=== PATIENT | male | born 1985 | race Caucasian/White ===

== ENCOUNTER → 2018-12-22 08:31 | Outpatient (CLI) | payer OTHER, SELFPAY ==
--- NOTE | 2018-12-22 | DI.MRI.S_ITS ---
PROCEDURE: MR LUMBAR SPINE WO CON INDICATIONS: PARESTHESIA OF SKIN TECHNIQUE: Noncontrast sagittal T1 spin echo and T2 fast echo, sagittal STIR, axial T1 and T2 fast spin echo through the lumbar spine. In cases with scoliosis, additional coronal T2 fast spin echo may be performed. COMPARISON: None. FINDINGS: Image quality: Good. Diagnostic. Some patient motion on 2 sequences.. Alignment and Curvature: There is normal bony alignment. Bone Marrow: Marrow is of normal overall signal. No acute vertebral body compression fractures. Mild anterior vertebral body height loss involving L1. Spinal Cord: Conus medullaris terminates at the L1 level. Visualized cord demonstrates normal signal and size. Paraspinous Soft Tissues: No paravertebral masses. T12-L1: Chronic disc height loss. Mild disc bulge. No canal stenosis or foraminal stenosis. L1-L2: Chronic disc height loss. Mild disc bulge. No canal stenosis or foraminal stenosis. L2-L3: No canal stenosis or foraminal stenosis. Mild facet joint fluid. L3-L4: No canal stenosis or foraminal stenosis. Mild facet joint hypertrophy. L4-L5: Posterior annulus tear plus disc bulge. No canal stenosis or foraminal stenosis. Facet joint hypertrophy. L5-S1: No canal stenosis or foraminal stenosis. Facet joint hypertrophy. IMPRESSION: 1. No canal stenosis or foraminal stenosis. 2. L4-L5, there is posterior annulus tear plus disc bulge. 3. Multilevel facet hypertrophy. Dictated by: Marco Antonio Palafox M.D. on 12/22/2018 at 11:51 Approved by: Marco Antonio Palafox M.D. on 12/22/2018 at 12:13
--- NOTE | 2018-12-22 | DI.MRI.S_ITS ---
PROCEDURE: MR THORACIC SPINE WO CON INDICATIONS: PARESTHESIA OF SKIN TECHNIQUE: Noncontrast sagittal T1 spine echo and T2 fast spin echo, sagittal STIR, axial T1 and T2 fast spin echo through the thoracic spine. COMPARISON: None. FINDINGS: Image quality: Excellent. Alignment and Curvature: There is normal bony alignment. Bone Marrow: Marrow is of normal overall signal. No acute vertebral body compression fractures. Mild chronic wedging of T12 and L1. Spinal Cord: Visualized spinal cord is normal in size and signal. Paraspinous Soft Tissues: No paravertebral masses. Miscellaneous: Mild concentric disc bulge to the left at T3-T4. Mild disc bulges at T11-T12 and T12-L1. On axial images, central canal and foramina appear widely patent at all scanned levels. IMPRESSION: 1. Mild disc bulges at T3-T4, T11-T12, and T12-L1. 2. No canal stenosis or foraminal stenosis. 3. Normal appearance of thoracic cord. 4. Mild chronic anterior vertebral body height loss of T12 and L1. Dictated by: Marco Antonio Palafox M.D. on 12/22/2018 at 11:43 Approved by: Marco Antonio Palafox M.D. on 12/22/2018 at 11:49
--- NOTE | 2018-12-22 | DI.MRI.S_ITS ---
PROCEDURE: MR CERVICAL SPINE WO CON INDICATIONS: paresthesia of skin, carpal tunnel syndrome TECHNIQUE: Noncontrast sagittal T1 spin echo and T2 fast spin echo, sagittal STIR, foraminal oblique sagittal T2 fast spin echo, and axial gradient echo or T2 fast spin echo through the cervical spine. COMPARISON: None. FINDINGS: Image quality: Excellent. Alignment and Curvature: There is normal bony alignment. Bone Marrow: Marrow demonstrates normal overall signal. Spinal Cord: Visualized spinal cord has normal size and signal. No cerebellar tonsillar herniation. Paraspinous Soft Tissues: No paravertebral masses. Prevertebral soft tissues are normal in thickness. C2-C3: No canal stenosis or foraminal stenosis. Mild right facet hypertrophy. C3-C4: No canal stenosis or foraminal stenosis. Mild right uncovertebral joint hypertrophy with mild right foraminal narrowing. C4-C5: No canal stenosis or foraminal stenosis. Mild bilateral facet hypertrophy. C5-C6: Minimal disc bulge. No canal stenosis or foraminal stenosis. Bilateral facet hypertrophy. C6-C7: No canal stenosis. Probable right foraminal annulus tear. No significant foraminal stenosis. Bilateral facet hypertrophy. C7-T1: Normal appearance. IMPRESSION: 1. Mild cervical spondylitic change with multilevel facet hypertrophy. 2. Probable right foraminal annulus tear at C6-C7. Does this patient have a right C7 radiculopathy? 3. No canal stenosis or significant foraminal stenosis. Dictated by: Marco Antonio Palafox M.D. on 12/22/2018 at 9:46 Approved by: Marco Antonio Palafox M.D. on 12/22/2018 at 9:55
== END ==
PROVIDERS: PCP General Practice; Visit Provider General Practice
DX: R20.2 Paresthesia of skin (principal); G56.00 Carpal tunnel syndrome, unspecified upper limb; M47.812 Spondylosis without myelopathy or radiculopathy, cervical region; M51.24 Other intervertebral disc displacement, thoracic region; M51.26 Other intervertebral disc displacement, lumbar region
CPT/HCPCS: 72141; 72146; 72148

== ENCOUNTER 2020-03-14 09:22 | Emergency (ER) | payer OTHER, SELFPAY ==
[2020-03-14] VITALS (13 sets, daily range): BP systolic 124–138; BP diastolic 61–94; PULSE 47–83; RESP 16–18; TEMP 36.6; O2SAT 97–100; BMI 33.5
--- NOTE | 2020-03-14 09:49 | ED.ABDPAIN ---
HPI - Abdominal Pain General Chief Complaint: Abdominal Pain Stated Complaint: flare up of diverticulitis Time Seen by Provider: 03/14/20 09:41 Source: patient Mode of arrival: Ambulatory Limitations: no limitations History of Present Illness HPI narrative: The patient presents with left-sided abdominal pains, started about 5 days ago. Pain is intensified over the last 3 days. He has nausea, no emesis. He is not having diarrhea, he notes stool changes. His stool has been dark and the consistency of toothpaste. He has decreased appetite, eating only brought the last couple days. He has had nothing to eat this morning. He has no associated back pain. He denies dysuria, the feels like there is pressure on his bladder. He has no prior history of urinary problems. He has a prior history of diverticulitis. He denies fever, he has experienced chills. Related Data Previous Rx's Medication Instructions Recorded ondansetron 4 mg PO Q4-6H PRN #20 tab 03/14/20 Allergies Allergy/AdvReac Type Severity Reaction Status Date / Time escitalopram [From Lexapro] Allergy Verified 03/14/20 09:31 sertraline [From Zoloft] Allergy Verified 03/14/20 09:31 Review of Systems Constitutional Constitutional: Reports anorexia, Reports chills, Denies fever(s), Denies headache(s) and Reports lethargy Eyes Eyes: Denies change in vision ENT Ears, Nose, Mouth, and Throat: Denies headache(s) Comments: No ENT complaints Cardiovascular Cardiovascular: Denies chest pain, Denies irregular heart rhythm and Denies lightheadedness Respiratory Respiratory: Denies chest congestion and Denies cough Gastrointestinal Comments: See HPI Genitourinary Genitourinary: Reports as per HPI Genitourinary: Reports as per HPI Musculoskeletal Musculoskeletal: Denies back pain and Denies arthralgias Integumentary/Breasts Skin/Breast: Denies pruritus, Denies erythema and Denies rash Neurologic Neurologic: Denies confusion and Denies headache(s) Psychiatric Psychiatric: Denies anxiety and Denies confusion Patient History Medical History (Updated 03/14/20 @ 12:33 by Justin Thomas MD) Depression Diverticulitis Peripheral neuropathy Surgical History (Updated 03/14/20 @ 17:06 by Justin Thomas MD) No significant past surgical history Social History Smoking Status: Never smoker Smoking Status: Never smoker alcohol intake frequency: 0-2 drinks per day Substance Use Type: does not use Exam Initial Vital Signs Initial Vital Signs: Vital Signs Pulse Rate 83 03/14/20 09:28 Pulse Oximetry 98 03/14/20 09:28 Const General: cooperative and well developed Nutritional Appearance: well nourished [facility] Head: normocephalic and atraumatic Mouth: oral mucosae normal Eyes Conjunctivae: conjunctivae normal Sclera: sclerae normal Resp Effort & Inspection: normal respiratory effort and able to speak in complete sentences Auscultation: clear to auscultation bilaterally, no rales, no rhonchi and no wheezes Cardio Rate: regular rate Rhythm: regular rhythm Heart Sounds: S1 normal, S2 normal, no click, no gallops, no murmurs and no rubs Pulses: normal peripheral pulses GI Inspection: non-distended Palpation: soft, no hepatosplenomegaly, guarding (No rebound) and No pulsatile mass Auscultation: normal bowel sounds Back/Spine/Pelvis Back: No CVA tenderness Skin General: no rashes or lesions noted, No jaundice and No petechiae Neuro General: patient alert, patient oriented x3, gait normal and no focal motor deficits Speech: speech normal Extrem General: no pedal edema and no calf tenderness Psych Mental Status: mental status grossly normal Course Orders Ordered: ED Orders 03/14/20 10:34 CT abdomen pelvis w con Stat Discontinued Medications Sodium Chloride (Normal Saline 0.9%) 1,000 mls @ 150 mls/hr IV CONT SERA Last Admin: 03/14/20 10:13 Dose: Not Given Documented by: STEFANI Sodium Chloride (Normal Saline 0.9%) 1,000 mls @ 200 mls/hr IV CONT SERA Last Infusion: 03/14/20 12:30 Dose: 0 mls/hr Documented by: Admin: 03/14/20 10:08 Dose: 200 mls/hr Documented by: STEFANI Ketorolac Tromethamine (Ketorolac 60 Mg/2 Ml Vial) 30 mg IV NOW ONE Stop: 03/14/20 09:48 Last Admin: 03/14/20 10:09 Dose: 30 mg Documented by: MMINOR Ondansetron HCl (Ondansetron 4 Mg/2 Ml Inj) 4 mg IV NOW ONE Stop: 03/14/20 09:48 Last Admin: 03/14/20 10:09 Dose: 4 mg Documented by: MMINOR Vital Signs Vital signs: Vital Signs - 8 hr 03/14/20 11:00 03/14/20 11:19 03/14/20 11:30 Pulse Rate 54 L 63 47 L Respiratory Rate Blood Pressure 133/63 132/67 Pulse Oximetry 97 99 99 03/14/20 12:00 03/14/20 12:30 03/14/20 12:31 Pulse Rate 61 59 L 59 L Respiratory Rate Blood Pressure 129/63 134/61 Pulse Oximetry 100 99 03/14/20 12:44 Pulse Rate 58 L Respiratory Rate 16 Blood Pressure 124/89 Pulse Oximetry 99 MDM - Abdominal Pain Lab Data Result diagrams: 03/14/20 09:40 03/14/20 09:40 Labs: Lab Results 03/14/20 03/14/20 Range/Units 09:40 09:40 WBC 5.5 (4.5-11.0) X10^3/uL RBC 5.23 (4.5-5.9) X10^6/uL Hgb 15.2 (13.5-17.5) g/dL Hct 45.5 (41-53) % MCV 87.0 (80-100) fL MCH 29.1 (26-34) PG MCHC 33.5 (30-36) % RDW 13.5 (11.6-14.8) % Plt Count 239 (150-400) X10^3/uL Neut % (Auto) 48.7 L (50-75) % Lymph % (Auto) 36.8 (25-40) % [place] % (Auto) 11.2 (3-14) % Eos % (Auto) 2.6 (2-4) % Baso % (Auto) 0.7 (0-2) % Neut # (Auto) 2700 (3151-2794) /uL Lymph # (Auto) 2000 (0950-3720) /uL [place] # (Auto) 600 (0-900) /uL Eos # (Auto) 100 (0-450) /uL Baso # (Auto) 0 (0-100) /uL Sodium 138 (137-145) mmol/L Potassium 4.8 (3.4-5.1) mmol/L Chloride 106 (98-107) mmol/L Carbon Dioxide 28 (22-32) mmol/L BUN 18 (9-20) mg/dL Creatinine 1.12 (0.66-1.25) mg/dL Estimated GFR > 60.0 (>60) mL/min BUN/Creatinine Ratio 16.1 (6-22) Glucose 113 H (70-100) mg/dL Calcium 9.4 (8.4-10.2) mg/dL Total Bilirubin 0.6 (0.2-1.3) mg/dL AST 31 (17-59) IU/L ALT 39 (<50) IU/L Alkaline Phosphatase 71 (38-126) U/L Total Protein 7.7 (6.3-8.2) g/dL Albumin 4.4 (3.5-5.0) g/dL Globulin 3.3 (1.7-4.1) g/dL Albumin/Globulin Ratio 1.3 (1.0-2.8) Lipase 58 (23-300) U/L Point of care testing: Urine Dip Bedside Urine Glucose Negative Bedside Urine Bilirubin - Negative Bedside Urine Ketone - Negative Urine Specific [place] 1.010 Bedside Urine Occult Blood - Negative Bedside Urine pH 6 Bedside Urine Protein - Negative Bedside Urine Urobilinogen - Negative Bedside Urine Nitrite - Negative Bedside Urine Leukocytes - Negative Esterase Imaging Data CT scan - abdomen/pelvis: Radiologist's Impression: 32 Justin Thomas MD Find Patient Imaging - Nasir Roth 34 M 1985 ACTIVITY DATE EXAM STATUS AUTHOR 03/14/20 10:[address] [id number] Scan ReportSigned Patient: Nasir Roth MMR#: [id number]: 1985Acct:[id number]/Sex: 34 / MDate of Service: 03/14/20Loc: EDAccession Number: [id number] Procedure: CT abdomen pelvis w con Ordering Provider: Justin Thomas MD PROCEDURE: CT ABDOMEN PELVIS W CON INDICATIONS: LLQ abdominal pain. History of diverticulitis. TECHNIQUE: After the administration of intravenous contrast, 5 mm thick sections acquired from the diaphragm to the symphysis. 5 mm coronal and sagittal reformats were acquired. For radiation dose reduction, the following was used: automated exposure control, adjustment of mA and/or kV according to patient size. COMPARISON: None. FINDINGS: Image quality: Excellent. ABDOMEN: Lung bases: Lung bases are clear. Heart size is normal. Solid organs: Diffuse moderate hepatic steatosis. Otherwise normal appearance of the liver. Gallbladder is normal. Biliary system is non dilated. Pancreas enhances normally. Spleen is normal in size and enhancement. No adrenal nodules. Kidneys demonstrate normal size and enhancement, without hydronephrosis. Peritoneum and bowel: Bowel loops demonstrate normal wall thickness and caliber. No free fluid or air. Nodes and vessels: No retroperitoneal or mesenteric adenopathy by size criteria. Aorta and inferior vena cava are normal in size. Miscellaneous: No ventral hernias. PELVIS: Genitourinary: Bladder wall thickness is normal. Miscellaneous: No inguinal hernias or adenopathy. Bones: No suspicious bony lesions. No vertebral body compression fractures. IMPRESSION: No acute finding. Dictated by: Wilmar Wong M.D. on 03/14/2020 at 11:00 Approved by: Wilmar Wong M.D. on 03/14/2020 at 11:02 [facility] Narrative Medical decision making narrative: The patient's abdominal pain has improved significantly with Toradol. The source of the pain is unclear. There is no evidence of significant infection, urinary issues, or acute intra-abdominal process. He will be discharged home on a bland diet. He is advised to use Tylenol and Zofran as needed. He is advised to return here if symptoms escalate. Discharge Plan Departure Patient Disposition: Home Clinical Impression: Abdominal wall pain in left flank Instructions: DI for Abdominal Pain-Adult Activity Restrictions/Additional Instructions: You should be on a bland diet, drink plenty of water. Advance her diet slowly as tolerated. Tylenol 2 tablets every 4 hours as needed for pain. Zofran every 4 hours as needed for nausea. The prescription has been electronically forwarded to [place]. Return to the ER for increasing pain, fever or vomiting. Prescriptions: New ondansetron 4 mg tablet,disintegrating 4 mg PO Q4-6H PRN (Reason: nausea and vomiting) Qty: 20 RF: 0 Stand Alone Forms: Work Release Note
[2020-03-14 09:50] LABS: Add Manual Diff / Slide Review NO; Basophils Absolute Auto 0 /uL (0-100); Basophils Percent Auto 0.7 % (0-2); Eosinophils Absolute Auto 100 /uL (0-450); Eosinophils Percent Auto 2.6 % (2-4); Hematocrit 45.5 % (41-53); Hemoglobin 15.2 g/dL (13.5-17.5); Lymphocytes Absolute Auto 2000 /uL (1100-4500); Lymphocytes Percent Auto 36.8 % (25-40); Mean Corpuscular HGB Conc 33.5 % (30-36); Mean Corpuscular Hemoglobin 29.1 PG (26-34); Monocytes Absolute Auto 600 /uL (0-900); Monocytes Percent Auto 11.2 % (3-14); Neutrophils Absolute Auto 2700 /uL (1500-7000); Neutrophils Percent Auto 48.7 % (50-75); Platelet Count 239 X10^3/uL (150-400); Red Blood Cell Count 5.23 X10^6/uL (4.5-5.9); Red Cell Distribution Width 13.5 % (11.6-14.8); White Blood Cell Count 5.5 X10^3/uL (4.5-11.0)
[2020-03-14 10:03] LABS: Alanine Aminotransferase 39 IU/L (<50); Albumin 4.4 g/dL (3.5-5.0); Albumin Globulin Ratio 1.3 (1.0-2.8); Alkaline Phosphatase 71 U/L (38-126); Aspartate Aminotransferase 31 IU/L (17-59); BUN Creatinine Ratio 16.1 (6-22); Bilirubin Total 0.6 mg/dL (0.2-1.3); Blood Urea Nitrogen 18 mg/dL (9-20); Calcium 9.4 mg/dL (8.4-10.2); Carbon Dioxide 28 mmol/L (22-32); Chloride 106 mmol/L (98-107); Estimated Glomerular Filt Rate > 60.0 mL/min (>60); Globulin 3.3 g/dL (1.7-4.1); Glucose 113 mg/dL (70-100); HEMOLYSIS < 15 (0-50); Lipase 58 U/L (23-300); Potassium 4.8 mmol/L (3.4-5.1); Sodium 138 mmol/L (137-145); Total Protein 7.7 g/dL (6.3-8.2)
[2020-03-14] MEDS: SODIUM CHLORIDE 0.9% 1,000 ML 200 ML IV (10:08)
[2020-03-14] MEDS: ONDANSETRON 4 MG/2 ML INJ IV (10:09)
[2020-03-14] MEDS: KETOROLAC 60 MG/2 ML VIAL 30 MG IV (10:09)
--- NOTE | 2020-03-14 10:34 | DI.CT.S_ITS ---
PROCEDURE: CT ABDOMEN PELVIS W CON INDICATIONS: LLQ abdominal pain. History of diverticulitis. TECHNIQUE: After the administration of intravenous contrast, 5 mm thick sections acquired from the diaphragm to the symphysis. 5 mm coronal and sagittal reformats were acquired. For radiation dose reduction, the following was used: automated exposure control, adjustment of mA and/or kV according to patient size. COMPARISON: None. FINDINGS: Image quality: Excellent. ABDOMEN: Lung bases: Lung bases are clear. Heart size is normal. Solid organs: Diffuse moderate hepatic steatosis. Otherwise normal appearance of the liver. Gallbladder is normal. Biliary system is non dilated. Pancreas enhances normally. Spleen is normal in size and enhancement. No adrenal nodules. Kidneys demonstrate normal size and enhancement, without hydronephrosis. Peritoneum and bowel: Bowel loops demonstrate normal wall thickness and caliber. No free fluid or air. Nodes and vessels: No retroperitoneal or mesenteric adenopathy by size criteria. Aorta and inferior vena cava are normal in size. Miscellaneous: No ventral hernias. PELVIS: Genitourinary: Bladder wall thickness is normal. Miscellaneous: No inguinal hernias or adenopathy. Bones: No suspicious bony lesions. No vertebral body compression fractures. IMPRESSION: No acute finding. Dictated by: Wilmar Wong M.D. on 03/14/2020 at 11:00 Approved by: Wilmar Wong M.D. on 03/14/2020 at 11:02
== END 2020-03-14 12:45 | disposition home or self-care (01) ==
PROVIDERS: Emergency Provider Emergency Medicine
DX: R10.9 Unspecified abdominal pain (principal); R63.0 Anorexia; R11.0 Nausea; K57.92 Diverticulitis of intestine, part unspecified, without perforation or abscess without bleeding
CPT/HCPCS: 36415; 74177; 80053; 81003; 83690; 85025; 96361; 96374; 96375; 99283; 99284; J1885; J2405; Q9967

== ENCOUNTER → 2021-06-19 09:38 | Outpatient (CLI) | payer OTHER, SELFPAY ==
[2021-06-19 13:13] LABS: Testosterone 212 ng/dL (132-813)
== END ==
PROVIDERS: PCP Nurse Practitioner Family; Referring Provider Nurse Practitioner Family; Visit Provider Nurse Practitioner Family
DX: R68.82 Decreased libido (principal)
CPT/HCPCS: 36415; 84403

== ENCOUNTER → 2021-06-24 10:12 | Outpatient (CLI) | payer OTHER, SELFPAY ==
[2021-06-24 10:44] LABS: Hematocrit 44.3 % (41-53); Hemoglobin 15.2 g/dL (13.5-17.5); Mean Corpuscular HGB Conc 34.4 % (30-36); Mean Corpuscular Hemoglobin 29.7 PG (26-34); Mean Corpuscular Volume 86.5 fL (80-100); Platelet Count 239 X10^3/uL (150-400); Red Blood Cell Count 5.12 X10^6/uL (4.5-5.9); Red Cell Distribution Width 13.9 % (11.6-14.8); White Blood Cell Count 6.4 X10^3/uL (4.5-11.0)
[2021-06-24 10:56] LABS: Alanine Aminotransferase 51 IU/L (<50); Albumin 4.5 g/dL (3.5-5.0); Albumin Globulin Ratio 1.3 (1.0-2.8); Alkaline Phosphatase 65 U/L (38-126); Aspartate Aminotransferase 37 IU/L (17-59); BUN Creatinine Ratio 14.8 (6-22); Bilirubin Total 0.6 mg/dL (0.2-1.3); Blood Urea Nitrogen 18 mg/dL (9-20); Calcium 9.4 mg/dL (8.4-10.2); Carbon Dioxide 27 mmol/L (22-32); Chloride 104 mmol/L (98-107); Cholesterol 225 mg/dL (140-199); Estimated Glomerular Filt Rate > 60.0 mL/min (>60); Globulin 3.4 g/dL (1.7-4.1); Glucose 107 mg/dL (70-100); HDL Cholesterol 33 mg/dL (40-60); HEMOLYSIS < 15 (0-50); LDL Cholesterol Calculated 117 mg/dL (<100); Potassium 4.4 mmol/L (3.4-5.1); Sodium 139 mmol/L (137-145); Total Protein 7.9 g/dL (6.3-8.2); Triglycerides 373 mg/dL (35-150)
[2021-06-24 11:28] LABS: Testosterone 160 ng/dL (132-813)
[2021-06-24 11:45] LABS: Vitamin B12 Reflex MMA if <400 362 pg/mL (239-931)
[2021-06-27 05:19] LABS: Methylmalonic Acid,Serum 181 nmol/L (0-378)
== END ==
PROVIDERS: PCP Nurse Practitioner Family; Referring Provider Nurse Practitioner Family; Visit Provider Nurse Practitioner Family
DX: F31.60 Bipolar disorder, current episode mixed, unspecified (principal); R53.83 Other fatigue; Z00.00 Encounter for general adult medical examination without abnormal findings; R79.89 Other specified abnormal findings of blood chemistry; Z13.6 Encounter for screening for cardiovascular disorders
CPT/HCPCS: 36415; 80053; 80061; 82607; 83921; 84403; 84443; 85027

== ENCOUNTER → 2021-07-10 08:55 | Outpatient (CLI) | payer OTHER, SELFPAY ==
[2021-07-10 09:46] LABS: Hemoglobin A1C% w Est Avg Glu 5.3 % (4.0-6.0)
[2021-07-10 11:14] LABS: Alanine Aminotransferase 55 IU/L (<50); Albumin 4.4 g/dL (3.5-5.0); Albumin Globulin Ratio 1.4 (1.0-2.8); Alkaline Phosphatase 68 U/L (38-126); Aspartate Aminotransferase 45 IU/L (17-59); Bilirubin Total 0.6 mg/dL (0.2-1.3); Bilirubin Unconjugated 0.6 mg/dL (0.0-1.1); Globulin 3.1 g/dL (1.7-4.1); HEMOLYSIS < 15 (0-50); Total Protein 7.5 g/dL (6.3-8.2)
[2021-07-10 11:40] LABS: Prostate Specific Antigen Scrn 0.363 ng/mL (0.1-4.0)
== END ==
PROVIDERS: PCP Nurse Practitioner Family; Referring Provider Nurse Practitioner Family; Visit Provider Nurse Practitioner Family
DX: R73.09 Other abnormal glucose (principal); R74.01 Elevation of levels of liver transaminase levels; R79.89 Other specified abnormal findings of blood chemistry; Z12.5 Encounter for screening for malignant neoplasm of prostate
CPT/HCPCS: 36415; 80076; 83036; G0103

== ENCOUNTER 2022-12-23 09:54 | Emergency (ER) | payer OTHER, SELFPAY ==
[2022-12-23 10:27] VITALS: BP 137/75; PULSE 64; RESP 18; TEMP 36.6; O2SAT 99; BMI 33.5
[2022-12-23 10:57] LABS: Appearance Urine UA CLEAR; Bilirubin Urine UA NEGATIVE (NEGATIVE); Color Urine UA YELLOW; Glucose Urine UA NEGATIVE (Negative); Ketones Urine UA NEGATIVE (NEGATIVE); Leukocyte Esterase Urine UA NEGATIVE (NEGATIVE); Nitrite Urine UA NEGATIVE (Negative); Occult Blood Urine UA NEGATIVE (Negative); Protein Urine UA NEGATIVE (Negative); Specific Gravity Urine UA <=1.005 (1.000-1.035); Urobilinogen Urine UA 0.2 E.U./dL (0.2); pH Urine UA 5.5 (4.5-8.0)
[2022-12-23 11:03] LABS: UR Morphine/Opiate cutoff 300 Negative (Negative); Ur Creatinine Normal (Normal); Ur Specific Gravity Normal (Normal); Urine Amphetamines Negative (Negative); Urine Barbiturates Negative (Negative); Urine Benzodiazepines Negative (Negative); Urine Cocaine Negative (Negative); Urine MDMA Negative (Negative); Urine Methadone Negative (Negative); Urine Methamphetamines Negative (Negative); Urine Oxycodone Negative (Negative); Urine Phencyclidine Negative (Negative); Urine Tetrahydrocannabinol Negative (Negative); Urine Tricyclic Antidepressant Negative (Negative); Urine pH Normal (Normal)
[2022-12-23 11:06] LABS: Bacteria Urine None Seen; Culture Indicated Urine Cult Not Indicated; RBC Urine None Seen (0-5/HPF); Squamous Epithelial Cell Urine None Seen (0-5/HPF); WBC Urine None Seen (0-5/HPF)
[2022-12-23] MEDS: SODIUM CHLORIDE 0.9% 1,000 ML 1000 ML IV (11:48)
[2022-12-23 11:56] LABS: Add Manual Diff / Slide Review NO; Basophils Absolute Auto 100 /uL (0-100); Basophils Percent Auto 1.1 % (0-2); Eosinophils Absolute Auto 200 /uL (0-450); Hematocrit 41.9 % (41-53); Hemoglobin 14.3 g/dL (13.5-17.5); Lymphocytes Absolute Auto 2200 /uL (1100-4500); Lymphocytes Percent Auto 29.6 % (25-40); Mean Corpuscular Hemoglobin 29.3 PG (26-34); Mean Corpuscular Volume 86.2 fL (80-100); Monocytes Absolute Auto 600 /uL (0-900); Monocytes Percent Auto 8.7 % (3-14); Neutrophils Absolute Auto 4300 /uL (1500-7000); Neutrophils Percent Auto 58.6 % (50-75); Platelet Count 262 X10^3/uL (150-400); Red Blood Cell Count 4.87 X10^6/uL (4.5-5.9); Red Cell Distribution Width 14.2 % (11.6-14.8); White Blood Cell Count 7.4 X10^3/uL (4.5-11.0)
[2022-12-23 12:07] LABS: Alanine Aminotransferase 32 IU/L (<50); Albumin 4.5 g/dL (3.5-5.0); Albumin Globulin Ratio 1.4 (1.0-2.8); Alkaline Phosphatase 66 U/L (38-126); Aspartate Aminotransferase 28 IU/L (17-59); BUN Creatinine Ratio 8.8 (6-22); Bilirubin Total 0.4 mg/dL (0.2-1.3); Blood Urea Nitrogen 9 mg/dL (9-20); Calcium 9.5 mg/dL (8.4-10.2); Carbon Dioxide 28 mmol/L (22-32); Chloride 102 mmol/L (98-107); Estimated Glomerular Filt Rate > 60 mL/min (>60); Globulin 3.2 g/dL (1.7-4.1); Glucose 96 mg/dL (70-100); HEMOLYSIS < 15 (0-50); Potassium 4.4 mmol/L (3.4-5.1); Sodium 138 mmol/L (137-145); Total Protein 7.7 g/dL (6.3-8.2)
[2022-12-23 12:08] LABS: Creatine Kinase 168 U/L (55-170)
[2022-12-23 12:19] LABS: Troponin I < 0.012 ng/mL (0.01-0.034)
--- NOTE | 2022-12-23 12:24 | ED.AMS ---
HPI - Altered Mental Status <Leti Donald PA-C - Last Filed: 12/23/22 14:19> General Chief Complaint: Dizziness Stated Complaint: poss kidney in fection, side pain Time Seen by Provider: 12/23/22 12:00 Source: patient Mode of arrival: Ambulatory History of Present Illness HPI narrative: Patient is a 37-year-old male who presents with multiple complaints. He reports a history of rhabdo while he was deployed in [place] and required treatment at a hospital in [facility]. He has significant PTSD for which he is currently taking trazodone and fluoxetine. He also reports taking methylphenidate, in both an immediate release and a long-acting form. He recently doubled his dose of trazodone per his psychiatric provider. He presents today with feeling disconnected; reports he is not behaving like himself and behaving similarly to 1 month ago when he was feeling very ill and was hallucinating. At that time she reports he was arrested and detained in senior living, although she reports this was a mental health crisis and not a criminal event. Today he complains of bilateral flank pain which radiates up to his neck and down his right arm. He has right hand pain after injuring his hand 1-2 days ago. He endorses decreased appetite He denies fever or chills, chest pain, recent upper respiratory symptoms, nausea vomiting, urinary symptoms including hematuria, dysuria, frequency. Related Data Home Medications Medication Instructions Recorded Confirmed cetirizine 10 mg capsule (Zyrtec) 10 mg PO DAILY 03/20/20 06/18/21 venlafaxine 75 mg capsule,extended 112.5 mg PO DAILY 01/09/21 06/18/21 release 24 hr cholecalciferol (vitamin D3) 50 50 mcg PO DAILY 07/30/21 07/30/21 mcg (2,000 unit) capsule modafinil 200 mg tablet (Provigil) 200 mg PO QAM 07/30/21 07/30/21 omega 9-jan-bej-fish oil 1,000 mg 1 cap PO DAILY 07/30/21 07/30/21 (120 mg-180 mg) capsule (Fish Oil) vitamin B complex 1 cap PO DAILY 07/30/21 07/30/21 Allergies Allergy/AdvReac Type Severity Reaction Status Date / Time apricot Allergy Intermediate hives Verified 12/23/22 10:32 escitalopram [From Lexapro] Allergy Verified 12/23/22 10:32 sertraline [From Zoloft] Allergy Verified 12/23/22 10:32 Review of Systems <Leti Donald PA-C - Last Filed: 12/23/22 14:19> Review of Systems ROS Unobtainable: All systems reviewed & are unremarkable except as noted in HPI and below Patient History <Leti Donald PA-C - Last Filed: 12/23/22 14:19> Medical History Abdominal bloating Attention deficit disorder predominant inattentive type Bipolar disorder (2010) Decreased testosterone level in male (06/2021) Depression Diverticulitis Diverticulosis Elevated LFTs Encounter for wellness examination in adult (06/18/21) History of rhabdomyolysis (2010) Hypertriglyceridemia (06/2021) Low libido (11/2020) Peripheral neuropathy PTSD (post-traumatic stress disorder) (2010) Surgical History No significant past surgical history Social History Smoking Status: Never smoker Smoking Status: Never smoker alcohol intake frequency: 0-2 drinks per day Substance Use Type: does not use Exam <Leti Donald PA-C - Last Filed: 12/23/22 14:19> Narrative Exam Narrative: GENERAL: 37 year old patient appears stated age. Well-developed patient. He presents with a flat affect, slow to answer questions, shows minimal emotion. He describes feeling disconnected but denies suicidal ideation or homicidal ideation. NEURO: AOx3. HEAD: Atraumatic. Normocephalic. EYES: Pupils equal round and reactive. Extraocular motions intact. No scleral icterus. No injection or drainage. ENT: Nose without bleeding or purulent drainage. Airway patent. CARDIOVASCULAR: Regular rate and rhythm without murmurs, gallops, or rubs. RESPIRATORY: Clear to auscultation. Breath sounds equal bilaterally. No wheezes, rales, or rhonchi. GASTROINTESTINAL: Abdomen soft, non-tender, nondistended. No CVA tenderness EXTREMITIES: Mild edema and ecchymosis of right hand, no bony tenderness on palpation, full range of motion. SKIN: No rash or erythema of visible areas Initial Vital Signs Initial Vital Signs: Vital Signs Temperature 97.8 F 12/23/22 10:27 Pulse Rate 64 12/23/22 10:27 Respiratory Rate 18 12/23/22 10:27 Blood Pressure 137/75 12/23/22 10:27 Pulse Oximetry 99 12/23/22 10:27 Oxygen Delivery Method Room Air 12/23/22 10:27 <Rosalinda Beavers DO - Last Filed: 12/30/22 07:44> Initial Vital Signs Initial Vital Signs: Vital Signs Temperature 97.8 F 12/23/22 10:27 Pulse Rate 64 12/23/22 10:27 Respiratory Rate 18 12/23/22 10:27 Blood Pressure 137/75 12/23/22 10:27 Pulse Oximetry 99 12/23/22 10:27 Oxygen Delivery Method Room Air 12/23/22 10:27 Course <Leti Donald PA-C - Last Filed: 12/23/22 14:19> Orders Ordered: Discontinued Medications Sodium Chloride (Normal Saline 0.9%) 1,000 mls @ 1,000 mls/hr IV BOLUS ONE Stop: 12/23/22 12:36 Last Infusion: 12/23/22 12:48 Dose: 0 mls/hr Documented By: Admin: 12/23/22 11:48 Dose: 1,000 mls/hr Documented By: ALLIE Vital Signs Vital signs: Vital Signs - 8 hr 12/23/22 10:27 12/23/22 13:06 Temperature 97.8 F Pulse Rate 64 58 L Respiratory Rate 18 20 Blood Pressure 137/75 137/79 Pulse Oximetry 99 99 Oxygen Delivery Method Room Air Room Air <Rosalinda Beavers DO - Last Filed: 12/30/22 07:44> Orders Ordered: Discontinued Medications Sodium Chloride (Normal Saline 0.9%) 1,000 mls @ 1,000 mls/hr IV BOLUS ONE Stop: 12/23/22 12:36 Last Infusion: 12/23/22 12:48 Dose: 0 mls/hr Documented By: Admin: 12/23/22 11:48 Dose: 1,000 mls/hr Documented By: VEES Vital Signs Vital signs: Vital Signs - 8 hr 12/23/22 10:27 12/23/22 13:06 Temperature 97.8 F Pulse Rate 64 58 L Respiratory Rate 18 20 Blood Pressure 137/75 137/79 Pulse Oximetry 99 99 Oxygen Delivery Method Room Air Room Air MDM - Altered Mental Status <Leti Donald PA-C - Last Filed: 12/23/22 14:19> Lab Data 12/23/22 11:45 12/23/22 11:45 Labs: Lab Results 12/23/22 12/23/22 12/23/22 Range/Units 10:35 10:35 11:45 WBC 7.4 (4.5-11.0) X10^3/uL RBC 4.87 (4.5-5.9) X10^6/uL Hgb 14.3 (13.5-17.5) g/dL Hct 41.9 (41-53) % MCV 86.2 (80-100) fL MCH 29.3 (26-34) PG MCHC 34.0 (30-36) % RDW 14.2 (11.6-14.8) % Plt Count 262 (150-400) X10^3/uL Neut % (Auto) 58.6 (50-75) % Lymph % (Auto) 29.6 (25-40) % [place] % (Auto) 8.7 (3-14) % Eos % (Auto) 2.0 (2-4) % Baso % (Auto) 1.1 (0-2) % Neut # (Auto) 4300 (3309-3570) /uL Lymph # (Auto) 2200 (7690-8611) /uL [place] # (Auto) 600 (0-900) /uL Eos # (Auto) 200 (0-450) /uL Baso # (Auto) 100 (0-100) /uL Sodium (137-145) mmol/L Potassium (3.4-5.1) mmol/L Chloride (98-107) mmol/L Carbon Dioxide (22-32) mmol/L BUN (9-20) mg/dL Creatinine (0.66-1.25) mg/dL Estimated GFR (>60) mL/min BUN/Creatinine Ratio (6-22) Glucose (70-100) mg/dL Calcium (8.4-10.2) mg/dL Total Bilirubin (0.2-1.3) mg/dL AST (17-59) IU/L ALT (<50) IU/L Alkaline Phosphatase (38-126) U/L Total Creatine Kinase (55-170) U/L Troponin I (0.01-0.034) ng/mL Total Protein (6.3-8.2) g/dL Albumin (3.5-5.0) g/dL Globulin (1.7-4.1) g/dL Albumin/Globulin Ratio (1.0-2.8) Urine Color Yellow Urine Appearance Clear Urine pH 5.5 (4.5-8.0) Ur Specific [place] <=1.005 (1.000-1.035) Urine Protein Negative (Negative) Urine Glucose (UA) Negative (Negative) g/dL Urine Ketones Negative (NEGATIVE) Urine Occult Blood Negative (Negative) Urine Nitrate Negative (Negative) Urine Bilirubin Negative (NEGATIVE) Urine Urobilinogen 0.2 (0.2) E.U./dL Ur Leukocyte Esterase Negative (NEGATIVE) Urine RBC None seen (0-5/HPF) Urine WBC None seen (0-5/HPF) Ur Squamous Epith Cells None seen (0-5/HPF) Urine Bacteria None seen (None) Ur Culture Indicated? Cult not indicated U Opiates 300ng/mL cut Negative (Negative) Ur Oxycodone Screen Negative (Negative) Urine Methadone Screen Negative (Negative) Ur Barbiturates Screen Negative (Negative) U Tricyclic Antidepress Negative (Negative) Ur Phencyclidine Scrn Negative (Negative) Ur Amphetamines Screen Negative (Negative) U Methamphetamines Scrn Negative (Negative) Ur MDMA Scrn (Ecstasy) Negative (Negative) U Benzodiazepines Scrn Negative (Negative) Urine Cocaine Screen Negative (Negative) U Marijuana (THC) Screen Negative (Negative) 12/23/22 12/23/22 Range/Units 11:45 11:45 WBC (4.5-11.0) X10^3/uL RBC (4.5-5.9) X10^6/uL Hgb (13.5-17.5) g/dL Hct (41-53) % MCV (80-100) fL MCH (26-34) PG MCHC (30-36) % RDW (11.6-14.8) % Plt Count (150-400) X10^3/uL Neut % (Auto) (50-75) % Lymph % (Auto) (25-40) % [place] % (Auto) (3-14) % Eos % (Auto) (2-4) % Baso % (Auto) (0-2) % Neut # (Auto) (9137-4908) /uL Lymph # (Auto) (0685-1327) /uL [place] # (Auto) (0-900) /uL Eos # (Auto) (0-450) /uL Baso # (Auto) (0-100) /uL Sodium 138 (137-145) mmol/L Potassium 4.4 (3.4-5.1) mmol/L Chloride 102 (98-107) mmol/L Carbon Dioxide 28 (22-32) mmol/L BUN 9 (9-20) mg/dL Creatinine 1.02 (0.66-1.25) mg/dL Estimated GFR > 60 (>60) mL/min BUN/Creatinine Ratio 8.8 (6-22) Glucose 96 (70-100) mg/dL Calcium 9.5 (8.4-10.2) mg/dL Total Bilirubin 0.4 (0.2-1.3) mg/dL AST 28 (17-59) IU/L ALT 32 (<50) IU/L Alkaline Phosphatase 66 (38-126) U/L Total Creatine Kinase 168 (55-170) U/L Troponin I < 0.012 (0.01-0.034) ng/mL Total Protein 7.7 (6.3-8.2) g/dL Albumin 4.5 (3.5-5.0) g/dL Globulin 3.2 (1.7-4.1) g/dL Albumin/Globulin Ratio 1.4 (1.0-2.8) Urine Color Urine Appearance Urine pH (4.5-8.0) Ur Specific [place] (1.000-1.035) Urine Protein (Negative) Urine Glucose (UA) (Negative) g/dL Urine Ketones (NEGATIVE) Urine Occult Blood (Negative) Urine Nitrate (Negative) Urine Bilirubin (NEGATIVE) Urine Urobilinogen (0.2) E.U./dL Ur Leukocyte Esterase (NEGATIVE) Urine RBC (0-5/HPF) Urine WBC (0-5/HPF) Ur Squamous Epith Cells (0-5/HPF) Urine Bacteria (None) Ur Culture Indicated? U Opiates 300ng/mL cut (Negative) Ur Oxycodone Screen (Negative) Urine Methadone Screen (Negative) Ur Barbiturates Screen (Negative) U Tricyclic Antidepress (Negative) Ur Phencyclidine Scrn (Negative) Ur Amphetamines Screen (Negative) U Methamphetamines Scrn (Negative) Ur MDMA Scrn (Ecstasy) (Negative) U Benzodiazepines Scrn (Negative) Urine Cocaine Screen (Negative) U Marijuana (THC) Screen (Negative) MDM Narrative Medical decision making narrative: Multiple etiologies for patient's symptoms considered including, but not limited to: Medication side effect from higher trazodone dose, kidney stone, pyelonephritis, UTI, sepsis, psychosis. Obtained labs from [facility] on 11/12/2022; at this time, his renal function showed a creatinine of 1.5 and he had an elevated CK in the 400s. These lab abnormalities have resolved today and his labs are normal including a normal UA and a negative urine toxicology. Patient has normal vitals today. I suspect his symptoms are related to his higher trazodone dose, possibly with other psychiatric component. While in the ER, patient heard back from his psychiatry provider who advised him to go back to his previous dose and to follow up as scheduled next week with her. Patient's symptoms improved over duration of stay with above-stated therapies. Findings and discharge diagnosis discussed with patient/family followed by verbalization of understanding Return precautions discussed with patient/family whom verbalize understanding of diagnosis and plan <Rosalinda Beavers, DO - Last Filed: 12/30/22 07:44> Lab Data Labs: Lab Results 12/23/22 12/23/22 12/23/22 Range/Units 10:35 10:35 11:45 WBC 7.4 (4.5-11.0) X10^3/uL RBC 4.87 (4.5-5.9) X10^6/uL Hgb 14.3 (13.5-17.5) g/dL Hct 41.9 (41-53) % MCV 86.2 (80-100) fL MCH 29.3 (26-34) PG MCHC 34.0 (30-36) % RDW 14.2 (11.6-14.8) % Plt Count 262 (150-400) X10^3/uL Neut % (Auto) 58.6 (50-75) % Lymph % (Auto) 29.6 (25-40) % [place] % (Auto) 8.7 (3-14) % Eos % (Auto) 2.0 (2-4) % Baso % (Auto) 1.1 (0-2) % Neut # (Auto) 4300 (9996-8557) /uL Lymph # (Auto) 2200 (7586-8450) /uL [place] # (Auto) 600 (0-900) /uL Eos # (Auto) 200 (0-450) /uL Baso # (Auto) 100 (0-100) /uL Sodium (137-145) mmol/L Potassium (3.4-5.1) mmol/L Chloride (98-107) mmol/L Carbon Dioxide (22-32) mmol/L BUN (9-20) mg/dL Creatinine (0.66-1.25) mg/dL Estimated GFR (>60) mL/min BUN/Creatinine Ratio (6-22) Glucose (70-100) mg/dL Calcium (8.4-10.2) mg/dL Total Bilirubin (0.2-1.3) mg/dL AST (17-59) IU/L ALT (<50) IU/L Alkaline Phosphatase (38-126) U/L Total Creatine Kinase (55-170) U/L Troponin I (0.01-0.034) ng/mL Total Protein (6.3-8.2) g/dL Albumin (3.5-5.0) g/dL Globulin (1.7-4.1) g/dL Albumin/Globulin Ratio (1.0-2.8) Urine Color Yellow Urine Appearance Clear Urine pH 5.5 (4.5-8.0) Ur Specific [place] <=1.005 (1.000-1.035) Urine Protein Negative (Negative) Urine Glucose (UA) Negative (Negative) g/dL Urine Ketones Negative (NEGATIVE) Urine Occult Blood Negative (Negative) Urine Nitrate Negative (Negative) Urine Bilirubin Negative (NEGATIVE) Urine Urobilinogen 0.2 (0.2) E.U./dL Ur Leukocyte Esterase Negative (NEGATIVE) Urine RBC None seen (0-5/HPF) Urine WBC None seen (0-5/HPF) Ur Squamous Epith Cells None seen (0-5/HPF) Urine Bacteria None seen (None) Ur Culture Indicated? Cult not indicated U Opiates 300ng/mL cut Negative (Negative) Ur Oxycodone Screen Negative (Negative) Urine Methadone Screen Negative (Negative) Ur Barbiturates Screen Negative (Negative) U Tricyclic Antidepress Negative (Negative) Ur Phencyclidine Scrn Negative (Negative) Ur Amphetamines Screen Negative (Negative) U Methamphetamines Scrn Negative (Negative) Ur MDMA Scrn (Ecstasy) Negative (Negative) U Benzodiazepines Scrn Negative (Negative) Urine Cocaine Screen Negative (Negative) U Marijuana (THC) Screen Negative (Negative) 12/23/22 12/23/22 Range/Units 11:45 11:45 WBC (4.5-11.0) X10^3/uL RBC (4.5-5.9) X10^6/uL Hgb (13.5-17.5) g/dL Hct (41-53) % MCV (80-100) fL MCH (26-34) PG MCHC (30-36) % RDW (11.6-14.8) % Plt Count (150-400) X10^3/uL Neut % (Auto) (50-75) % Lymph % (Auto) (25-40) % [place] % (Auto) (3-14) % Eos % (Auto) (2-4) % Baso % (Auto) (0-2) % Neut # (Auto) (9276-6751) /uL Lymph # (Auto) (0439-8175) /uL [place] # (Auto) (0-900) /uL Eos # (Auto) (0-450) /uL Baso # (Auto) (0-100) /uL Sodium 138 (137-145) mmol/L Potassium 4.4 (3.4-5.1) mmol/L Chloride 102 (98-107) mmol/L Carbon Dioxide 28 (22-32) mmol/L BUN 9 (9-20) mg/dL Creatinine 1.02 (0.66-1.25) mg/dL Estimated GFR > 60 (>60) mL/min BUN/Creatinine Ratio 8.8 (6-22) Glucose 96 (70-100) mg/dL Calcium 9.5 (8.4-10.2) mg/dL Total Bilirubin 0.4 (0.2-1.3) mg/dL AST 28 (17-59) IU/L ALT 32 (<50) IU/L Alkaline Phosphatase 66 (38-126) U/L Total Creatine Kinase 168 (55-170) U/L Troponin I < 0.012 (0.01-0.034) ng/mL Total Protein 7.7 (6.3-8.2) g/dL Albumin 4.5 (3.5-5.0) g/dL Globulin 3.2 (1.7-4.1) g/dL Albumin/Globulin Ratio 1.4 (1.0-2.8) Urine Color Urine Appearance Urine pH (4.5-8.0) Ur Specific [place] (1.000-1.035) Urine Protein (Negative) Urine Glucose (UA) (Negative) g/dL Urine Ketones (NEGATIVE) Urine Occult Blood (Negative) Urine Nitrate (Negative) Urine Bilirubin (NEGATIVE) Urine Urobilinogen (0.2) E.U./dL Ur Leukocyte Esterase (NEGATIVE) Urine RBC (0-5/HPF) Urine WBC (0-5/HPF) Ur Squamous Epith Cells (0-5/HPF) Urine Bacteria (None) Ur Culture Indicated? U Opiates 300ng/mL cut (Negative) Ur Oxycodone Screen (Negative) Urine Methadone Screen (Negative) Ur Barbiturates Screen (Negative) U Tricyclic Antidepress (Negative) Ur Phencyclidine Scrn (Negative) Ur Amphetamines Screen (Negative) U Methamphetamines Scrn (Negative) Ur MDMA Scrn (Ecstasy) (Negative) U Benzodiazepines Scrn (Negative) Urine Cocaine Screen (Negative) U Marijuana (THC) Screen (Negative) Discharge Plan Departure Patient Disposition: Home Clinical Impression: PTSD (post-traumatic stress disorder), History of rhabdomyolysis Instructions: Mental Health Services: An Overview Activity Restrictions/Additional Instructions: *Your blood work and urine tests were normal today and improved since 1 month ago at your previous lab draw at [facility]. I suspect many of your symptoms are related to your recently increased dose of trazodone. While you were in the emergency room, you followed up with your mental health prescriber who recommended you go back to your previous dose of trazodone and follow up with her at your scheduled appointment on [place], in 1 week. Please return to the emergency room if you develop suicidal or homicidal ideation, hallucinations, or other concerning symptoms. *What to do: *Please continue to take your regular medications as directed. [ ] New medication prescriptions sent to your pharmacy: [ ] [ ] New medication written as a paper prescription [x] No new medications given *Please follow up with your primary care provider in 2-3 days, call for an appointment. Let them know you were seen in the Emergency Department and that we ask that you be seen in follow up. We will electronically transmit a record of today's note if your PCP is in our system *If you do not have a primary care provider please contact the [facility] Resource line at [phone]. They will ask some questions about your medical history and help get you set up with a doctor in the community. *Return to Emergency Department if you should have any new, worsening or concerning symptoms, such as [fever greater than 101 F, shaking chills, worsening pain, persistent vomiting or other concerning symptoms]. Prescriptions: No Action modafinil [Provigil] 200 mg tablet 200 mg PO QAM omega 8-bod-cjl-fish oil [Fish Oil] 1,000 mg (120 mg-180 mg) capsule 1 cap PO DAILY vitamin B complex Capsule 1 cap PO DAILY cholecalciferol (vitamin D3) 50 mcg (2,000 unit) capsule 50 mcg PO DAILY Zyrtec 10 mg capsule 10 mg PO DAILY venlafaxine 75 mg capsule,extended release 24hr 112.5 mg PO DAILY Referrals: Lesli Bunn ARNP [Primary Care Provider] - Nyasia,Sadie, [id number] [Non-Staff] - Stand Alone Forms: Patient Portal/API <Rosalinda Beavers DO - Last Filed: 12/30/22 07:44> Cosign ED Attending Rennyature Attestation: I was immediately available in the department for consultation. Documentation has been reviewed.
[2022-12-23 13:06] VITALS: BP 137/79; PULSE 58; RESP 20; O2SAT 99
== END 2022-12-23 13:08 | disposition home or self-care (01) ==
PROVIDERS: Emergency Medicine; Emergency Provider Physician Assistant; PCP Nurse Practitioner
DX: F43.10 Post-traumatic stress disorder, unspecified (principal); Z87.39 Personal history of other diseases of the musculoskeletal system and connective tissue
CPT/HCPCS: 36415; 80053; 80305; 81001; 82550; 84484; 85025; 99284

== ENCOUNTER → 2023-05-21 08:07 | Outpatient (CLI) | payer OTHER, SELFPAY ==
--- NOTE | 2023-05-21 | DI.MRI.S_ITS ---
PROCEDURE: MR SHOULDER RT WO CON INDICATIONS: Pain in right shoulder TECHNIQUE: Noncontrast oblique coronal T2 fast spin echo with fat saturation, oblique sagittal T1 spin echo and T2 fast spin echo with fat saturation, axial T1 spin echo and T2 fast spin echo with fat saturation through the shoulder. COMPARISON: None. FINDINGS: Image quality: Excellent. Rotator cuff: Moderate supraspinatus and infraspinatus tendinosis. There is low-grade bursal surface fraying of the distal supraspinatus insertion without significant tearing. The teres minor tendon is intact. There is moderate subscapularis tendinosis. Rotator cuff muscles are normal in bulk. Bones and bursae: No acute trabecular bone injury or fracture. Chronic traction cystic changes are seen in the posterior superior humeral head. No focal glenohumeral cartilage defect is seen. Moderate degenerative changes are seen in the acromioclavicular joint with subchondral edema and subchondral cystic changes with marginal osteophyte formation. There is trace subacromial/subdeltoid fluid. No significant glenohumeral effusion. Capsule and soft tissues: There is focal nondisplaced tearing of the anterior labrum. Mild tendinosis of the proximal biceps long head tendon is noted. There is mild partial effacement of the rotator interval fat. The anterior band of the inferior glenohumeral ligament appears thickened. IMPRESSION: 1. Low-grade partial bursal surface fraying of the supraspinatus tendon at the distal insertion without significant rotator cuff tear. Diffuse moderate rotator cuff tendinosis. 2. Mild proximal biceps long head tendinosis. 3. Focal nondisplaced tearing of the anterior labrum. 4. Moderate acromioclavicular joint osteoarthrosis. 5. Partial effacement of the rotator interval fat and mild thickening of the inferior glenohumeral ligament are nonspecific, but can be seen in the setting of the clinical syndrome of adhesive capsulitis. Approved by: Joe Stafford M.D. on 05/21/2023 at 10:38
== END ==
PROVIDERS: PCP Nurse Practitioner; Referring Provider Internal Medicine; Visit Provider Internal Medicine
DX: M19.011 Primary osteoarthritis, right shoulder (principal); S43.491A Other sprain of right shoulder joint, initial encounter; M25.511 Pain in right shoulder
CPT/HCPCS: 73221

== ENCOUNTER → 2023-07-09 16:35 | Outpatient (CLI) | payer OTHER, SELFPAY ==
[2023-07-09 17:12] LABS: Add Manual Diff / Slide Review NO; Basophils Absolute Auto 100 /uL (0-100); Basophils Percent Auto 1.2 % (0-2); Eosinophils Absolute Auto 200 /uL (0-450); Eosinophils Percent Auto 2.2 % (2-4); Hematocrit 43.8 % (41-53); Lymphocytes Absolute Auto 2600 /uL (1100-4500); Lymphocytes Percent Auto 29.5 % (25-40); Mean Corpuscular HGB Conc 34.4 % (30-36); Mean Corpuscular Hemoglobin 29.9 PG (26-34); Monocytes Absolute Auto 800 /uL (0-900); Monocytes Percent Auto 8.6 % (3-14); Neutrophils Absolute Auto 5200 /uL (1500-7000); Neutrophils Percent Auto 58.5 % (50-75); Platelet Count 269 X10^3/uL (150-400); Red Blood Cell Count 5.04 X10^6/uL (4.5-5.9); White Blood Cell Count 8.9 X10^3/uL (4.5-11.0)
[2023-07-09 18:24] LABS: Alanine Aminotransferase 37 IU/L (<50); Albumin 4.4 g/dL (3.5-5.0); Albumin Globulin Ratio 1.3 (1.0-2.8); Alkaline Phosphatase 74 U/L (38-126); Aspartate Aminotransferase 31 IU/L (17-59); BUN Creatinine Ratio 16.2 (6-22); Bilirubin Total 0.6 mg/dL (0.2-1.3); Blood Urea Nitrogen 18 mg/dL (9-20); Calcium 9.3 mg/dL (8.4-10.2); Carbon Dioxide 24 mmol/L (22-32); Chloride 107 mmol/L (98-107); Estimated Glomerular Filt Rate > 60 mL/min (>60); Globulin 3.3 g/dL (1.7-4.1); Glucose 94 mg/dL (70-100); HEMOLYSIS < 15 (0-50); Potassium 4.1 mmol/L (3.4-5.1); Sodium 138 mmol/L (137-145); Total Protein 7.7 g/dL (6.3-8.2)
[2023-07-09 18:52] LABS: Prostate Specific Antigen Scrn 0.403 ng/mL (0.1-4.0)
[2023-07-17 08:10] LABS: Testosterone Free 6.09 ng/dL (5.00-21.00); Testosterone Total 138.3 ng/dL (264.0-916.0)
== END ==
PROVIDERS: PCP Nurse Practitioner; Referring Provider Nurse Practitioner; Visit Provider Nurse Practitioner
DX: E29.1 Testicular hypofunction (principal); R68.82 Decreased libido; F31.9 Bipolar disorder, unspecified; F98.8 Other specified behavioral and emotional disorders with onset usually occurring in childhood and adolescence; F32.9 Major depressive disorder, single episode, unspecified; Z12.5 Encounter for screening for malignant neoplasm of prostate; Z51.81 Encounter for therapeutic drug level monitoring; Z79.890 Hormone replacement therapy
CPT/HCPCS: 36415; 80053; 84402; 84403; 85025; G0103

== ENCOUNTER 2023-10-08 18:39 | Emergency (ER) | payer OTHER, SELFPAY ==
[2023-10-08 18:46] VITALS: BP 146/78; PULSE 85; RESP 18; TEMP 36.6; O2SAT 97; BMI 36.5
[2023-10-08 19:42] LABS: Add Manual Diff / Slide Review NO; Basophils Absolute Auto 100 /uL (0-100); Basophils Percent Auto 0.7 % (0-2); Eosinophils Absolute Auto 200 /uL (0-450); Eosinophils Percent Auto 2.8 % (2-4); Hematocrit 42.3 % (41-53); Hemoglobin 14.5 g/dL (13.5-17.5); Lymphocytes Absolute Auto 2700 /uL (1100-4500); Lymphocytes Percent Auto 33.1 % (25-40); Mean Corpuscular HGB Conc 34.4 % (30-36); Mean Corpuscular Hemoglobin 29.6 PG (26-34); Mean Corpuscular Volume 85.9 fL (80-100); Monocytes Absolute Auto 800 /uL (0-900); Monocytes Percent Auto 9.8 % (3-14); Neutrophils Absolute Auto 4300 /uL (1500-7000); Neutrophils Percent Auto 53.6 % (50-75); Platelet Count 261 X10^3/uL (150-400); Red Blood Cell Count 4.92 X10^6/uL (4.5-5.9); Red Cell Distribution Width 14.1 % (11.6-14.8); White Blood Cell Count 8.1 X10^3/uL (4.5-11.0)
--- NOTE | 2023-10-08 19:42 | PC.NURSE ---
Labs drawn by lab and UA collected and sent with.
--- NOTE | 2023-10-08 19:43 | PC.NURSE ---
Pt getting labs and urine done
[2023-10-08 19:50] LABS: Appearance Urine UA CLEAR; Bilirubin Urine UA NEGATIVE (NEGATIVE); Color Urine UA YELLOW; Glucose Urine UA NEGATIVE (Negative); Ketones Urine UA NEGATIVE (NEGATIVE); Leukocyte Esterase Urine UA NEGATIVE (NEGATIVE); Nitrite Urine UA NEGATIVE (Negative); Occult Blood Urine UA NEGATIVE (Negative); Protein Urine UA TRACE (Negative); Specific Gravity Urine UA >=1.030 (1.000-1.035); Ur Creatinine Normal (Normal); Ur Specific Gravity Normal (Normal); Urine pH Normal (Normal); Urobilinogen Urine UA 0.2 E.U./dL (0.2)
[2023-10-08 19:51] LABS: UR Morphine/Opiate cutoff 300 Negative (Negative); Urine Amphetamines Negative (Negative); Urine Barbiturates Negative (Negative); Urine Benzodiazepines Negative (Negative); Urine Cocaine Negative (Negative); Urine MDMA Negative (Negative); Urine Methadone Negative (Negative); Urine Methamphetamines Negative (Negative); Urine Oxycodone Negative (Negative); Urine Phencyclidine Negative (Negative); Urine Tetrahydrocannabinol Negative (Negative); Urine Tricyclic Antidepressant Negative (Negative)
[2023-10-08 19:58] LABS: RBC Urine None Seen (0-5/HPF); Urine Volume 10mL (spun); WBC Urine 0-1/HPF (0-5/HPF)
[2023-10-08 19:59] LABS: Bacteria Urine None Seen; Culture Indicated Urine Cult Not Indicated; Squamous Epithelial Cell Urine None Seen (0-5/HPF)
[2023-10-08 20:04] LABS: Acetaminophen < 10 ug/mL (10-30); Alanine Aminotransferase 40 IU/L (<50); Albumin 4.3 g/dL (3.5-5.0); Albumin Globulin Ratio 1.4 (1.0-2.8); Alkaline Phosphatase 71 U/L (38-126); Aspartate Aminotransferase 32 IU/L (17-59); Bilirubin Total 0.6 mg/dL (0.2-1.3); Blood Urea Nitrogen 11 mg/dL (9-20); Calcium 9.1 mg/dL (8.4-10.2); Carbon Dioxide 25 mmol/L (22-32); Chloride 106 mmol/L (98-107); Estimated Glomerular Filt Rate > 60 mL/min (>60); Ethanol (ETOH) < 10 mg/dL; Globulin 3.1 g/dL (1.7-4.1); Glucose 113 mg/dL (70-100); HEMOLYSIS < 15 (0-50); Potassium 3.8 mmol/L (3.4-5.1); Salicylate < 1.0 mg/dL (<20); Sodium 138 mmol/L (137-145); Total Protein 7.4 g/dL (6.3-8.2)
[2023-10-08 20:21] LABS: Free T4, Direct Thyroxine 1.06 ng/dL (0.78-2.19)
--- NOTE | 2023-10-08 20:23 | CM.SWNOTE ---
ED PALS SPECIALIST Assessment Note: PALS SPECIALIST - Multisensor Intelligence Officer Assessment PALS SPECIALIST - Multisensor Intelligence Officer Assessment Start: 10/08/23 19:24 Freq: Status: Active Protocol: Document 10/08/23 19:25 MW (Rec: 10/08/23 20:22 MW [id number]) PALS SPECIALIST/Multisensor Intelligence Officer Assessment Time Spent with Patient Start date 10/08/23 Visit Start Time 18:45 End date 10/08/23 Visit End Time 19:10 Total time Care Management spent on 25 minutes patient visit-in minutes Mental Health Screening Include Onset, Duration, Intensity Presenting Problem Patient presented at the recommendation of his psychologist, Dr. Rancho Mars in [place], with his for a mental health evaluation . Per and pt, pt has been exhibiting symptoms of a manic episode with little to no sleep for a week. Precipitating Event(s) Patient takes 75mg seroquel at night, Methylphenidate 36mg daily. Patient reports he has been obtaining testosterone shots as well. Patient has been previously diagnosed with an unspecified bipolar disorder (he was medically discharged from the [facility] because of this), depression and PTSD. 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 Patient Strengths Patient is accompanied by his and is employed. Current Behavioral Health Provider(s) Patient is seen by Dr. Vickers Include Facility, Provider, Ph. # Madisyn at [facility] in [place] . Psych. Hx Mental Health and Chemical Patient denies any substance Dependency use and is a former smoker. Pt explains he only drinks occassionally. Patient has been previously diagnosed with an unspecified bipolar disorder (he was medically discharged from the [facility] because of this), depression and PTSD. Family Hx of Behavioral Abuse None reported. Psychiatric Hospitalizations (date(s)/ Patient explains he was location) previously admitted at [facility] in fall and [facility] at their psych unit in January 2023. He was admitted there for manic episodes both admissions. Psychosocial information & Support Patient is a 38yo male, Systems resident of [place]. Patient is and has five children. Patient is accompanied today by his , Ct. 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 Legal Concerns Legal Matters - Outstanding Issues None reported. Mental Status Orientation (Person/Place/Time) AOx3 Stated Mood Tired as fuck Affect (Congruent with Mood?) Congruent with mood Thought Content - Specify/Describe Denies hallucinations or Obsessions, Delusions, Hallucinations delusions. Per EMR, pt has a hx of hallucinations. Pt denied having any recent nightmares but explains he wakes up sweating every morning, pt explains this is typically an indicator of nightmares. Thought Processes (Ubmhcpz-Ttojqadp-Ltdq Tangential at times but will Xmcdrxng-Wwqarefy-Feajyadycg- answer the question, might Lbjntysemttqvh-Mukgshk-Uufsgmqxmogl- need some redirection at times Thought Blocking) . Speech (Kbrgrg-Dsmg-Klsuncb-Rapid-Soft- Normal, pressured. Patient had Loud-Pressured) bouts of jumbled speech and spoke out of turn. It is evident he is sleep deprived. Motor (Srlwtj-Nzvcghyfh-Oyam-Other) Normal Insight (Kjxz-Jxvn-Frqg/Limited) Fair/limited Judgement (Bpqy-Tpnp-Lxoq/Limited) Fair/limited Impulse Control (Adequate-Impaired) Impaired. During triage assessment, patient began duckwalking across floor to exhibit an exercise required at an active duty intake assessment. retail marketing executive and pt asked pt to refrain from continuing this behavior, pt continued. Memory (Fptaqjyyh-Jvfthj-Imuict, Immediate, intact. Impaired-Intact) Concentration (Intact-Impaired) Impaired Attention (Intact-Impaired) Impaired Behavior (Appropriate-Inappropriate) Inappropriate, pt was found to be sticking his middle finger towards when answering triage questions about medications. During assessment , pt spoke tangentially about hypervigillance and interjected by pointing out certain triggers in the triage room (ex: red dot blinking from paper towel dispenser). Additional Comment Patient is communicative, calm and cooperative during assessment. Risk Assessment Suicidal Ideation (Plan) Yes Homicidal Ideation (Plan) No Comment Patient explains he has had suicidal ideation in the past but denies any at the moment. Denies any plan or homocidal ideation. Patient endorses major depressive symptoms of feelings of hopelessness, low self esteem, feelings of guilt , increased fatigue, irritability, muscle tension and unexplained headaches. Intervention Intervention PALS SPECIALIST meets with patient and during ED Triage assessment. Patient and expresses events of the past week which are congruent with a manic episode and PTSD episode to include: lack of sleep, arousal and reactivity, sweating, heart palpitations, anxiety, vivid flashbacks and intrusive thoughts, nightmares. PALS SPECIALIST, patient, patient and retail marketing executive discuss next steps. Patient explains he is wanting to receive inpatient behavioral health hospitalization at this time, pt was able to communicate previous hospitalizations and express preference to try other inpatient facilities if available. At this time, it is the opinion of this PALS SPECIALIST that patient would benefit from inpatient psychiatric hospitalization to stabilize during manic and PTSD episode. PALS SPECIALIST informs ED providers, Dr. Staton and Dr. June, who indicate agreement. PALS SPECIALIST informs RNs and July. Plan RA Plan Once patient is medically clear, ED staff will attempt to find inpatient placement for patient.
--- NOTE | 2023-10-08 20:24 | CM.SWNOTE ---
ED DIETARY INTERNSHIP Note: ED DIETARY INTERNSHIP identified pt is voluntary for psychiatric inpatient admission. ED DIETARY INTERNSHIP called [facility] and it was reported that there are male beds available and to send a packet. ED DIETARY INTERNSHIP called [facility] and it was reported that there are male beds available. ED DIETARY INTERNSHIP spoke with staff software engineer Samantha and completed initial intake screening, staff software engineer at [facility] requested for this DIETARY INTERNSHIP to send a packet for review. Pending ED Provider note and toxicology results, packet will be sent by ED staff. Pt still agreeable to voluntary referral. , Ct, is at bedside with pt. SANJEEV Roa
[2023-10-08 20:35] LABS: Thyroid Stimulating Hormone 0.949 uIU/mL (0.47-4.68)
--- NOTE | 2023-10-08 22:00 | PC.NURSE ---
Pt sitting in room speaking with his Ct at this time. Pt has intermittent episodes of talking around self, over sharing information when asked questions. states that she was going to take pt to [place], but he started to throw things in car ride from [place] to [place]. So Pt was brought here for evaluation and treatment options.
--- NOTE | 2023-10-08 23:06 | ED_ITS ---
HPI - Psych General Chief Complaint: Psychiatric Symptoms Stated Complaint: sent by MD for manic episode Time Seen by Provider: 10/08/23 22:57 Source: patient Mode of arrival: Ambulatory History of Present Illness HPI Narrative: 38-year-old male with history of psychiatric problems, recalls very diagnoses, 1 provider apparently believes he has bipolar 2, another provider apparently believes he has PTSD, he is taking Seroquel, he has had adjustment in his evening dose of methylphenidate, having stopped the higher dose, still taking the lower dose 10 mg methylphenidate. There provider Dr. Zuleta at all [facility] in [place] believes that he is having trouble with bipolar 2, they were going to drive to the [facility] for consultation when patient became quite agitated, here for further evaluation. Patient also complains of left-sided abdominal pain for the last few days, history of diverticulitis. No fevers or chills. No black or red stools. No nausea or vomiting. Patient denies current thoughts of wanting to hurt himself or others. Patient denies hearing voices. Patient denies ingestions or injuries. Related Data Home Medications Medication Instructions Recorded Confirmed cetirizine 10 mg capsule (Zyrtec) 10 mg PO DAILY 03/20/20 07/07/23 cholecalciferol (vitamin D3) 50 50 mcg PO DAILY 07/30/21 07/07/23 mcg (2,000 unit) capsule omega 8-pbb-ynb-fish oil 1,000 mg 1 cap PO DAILY 07/30/21 07/07/23 (120 mg-180 mg) capsule (Fish Oil) vitamin B complex 1 cap PO DAILY 07/30/21 07/07/23 methylphenidate HCl 36 mg 36 mg PO QAM 07/07/23 07/07/23 tablet,extended release 24 hr (Concerta) fluoxetine 20 mg capsule 20 mg PO DAILY 07/10/23 methylphenidate HCl 10 mg tablet 10 mg PO QAM PRN Per psychiatry 10/06/23 quetiapine 150 mg tablet 75 mg PO BEDTIME 10/06/23 Previous Rx's Medication Instructions Recorded safety needles 18 gauge x 1 1/2 #10 ea 08/21/23 (BD Eclipse) syringe with needle, safety 3 mL #10 ea 10/06/23 22 gauge x 1 1/2 (Monoject Safety Syringes) testosterone cypionate 200 mg/mL 100 mg (0.5 mL) IM Q2W #4 mL 10/06/23 intramuscular oil (Depo-Testosterone) Allergies Allergy/AdvReac Type Severity Reaction Status Date / Time apricot Allergy Intermediate hives Verified 12/23/22 10:32 escitalopram [From Lexapro] Allergy Verified 12/23/22 10:32 sertraline [From Zoloft] Allergy Verified 12/23/22 10:32 Review of Systems Review of Systems Narrative: As per HPI Patient History Medical History Hypogonadism in male Elevated LFTs Hypertriglyceridemia (06/2021) Decreased testosterone level in male (06/2021) Encounter for wellness examination in adult (06/18/21) Diverticulosis Low libido (11/2020) Abdominal bloating History of rhabdomyolysis (2010) Bipolar disorder (2010) Attention deficit disorder predominant inattentive type PTSD (post-traumatic stress disorder) (2010) Peripheral neuropathy Depression Diverticulitis Surgical History No significant past surgical history Social History Smoking Status: Former smoker Smoking Status: Former smoker alcohol intake frequency: a few times a month Substance Use Type: does not use Exam Narrative Exam Narrative: GENERAL: Well-developed patient, in mild distress. HEAD: Atraumatic. Normocephalic. EYES: Pupils equal round and reactive. Extraocular motions intact. No scleral icterus. No injection or drainage. ENT: Nose without bleeding, purulent drainage. Throat without erythema, tonsillar hypertrophy or exudate. Airway patent. NECK: Trachea midline. Non tender CARDIOVASCULAR: Regular rate and rhythm without murmurs, gallops, or rubs. RESPIRATORY: Clear to auscultation. Breath sounds equal bilaterally. No wheezes, rales, or rhonchi. GASTROINTESTINAL: Abdomen soft, non-tender, nondistended. EXTREMITIES: No edema or joint tenderness. BACK: Nontender without deformity or crepitance. No flank tenderness. NEURO: AOx3. SKIN: No rash or erythema of visible areas Initial Vital Signs Initial Vital Signs: Vital Signs Temperature 97.8 F 10/08/23 18:46 Pulse Rate 85 10/08/23 18:46 Respiratory Rate 18 10/08/23 18:46 Blood Pressure 146/78 H 10/08/23 18:46 Pulse Oximetry 97 10/08/23 18:46 Oxygen Delivery Method Room Air 10/08/23 18:46 Course Orders Ordered: ED Orders 10/08/23 23:12 CT abdomen pelvis w con Stat 10/09/23 02:12 COVID19 -Nasal RAPID Stat Discontinued Medications Sodium Chloride (Normal Saline 0.9%) 1,000 mls @ 1,000 mls/hr IV BOLUS ONE Stop: 10/09/23 00:30 Last Infusion: 10/09/23 01:20 Dose: Infused Documented By: Admin: 10/08/23 23:58 Dose: 1,000 mls/hr Documented By: Quetiapine Fumarate (Quetiapine 25 Mg Tablet) 75 mg PO NOW ONE Stop: 10/09/23 03:33 Last Admin: 10/09/23 03:38 Dose: 75 mg Documented By: Vital Signs Vital signs: Vital Signs - 8 hr 10/09/23 03:21 10/09/23 03:30 Temperature 97.8 F Pulse Rate 62 Respiratory Rate 15 Blood Pressure 144/74 H 144/74 H Pulse Oximetry 98 Oxygen Delivery Method Room Air MDM - Psych Lab Data Attestation: I reviewed the patient's lab results. Lab results narrative: Unremarkable CBC, CMP. Ethanol negative, salicylate negative, Tylenol level negative, UDS negative. Urine dip study negative. 10/08/23 19:30 10/08/23 19:30 Labs: Lab Results 10/08/23 10/08/23 10/08/23 Range/Units 19:30 19:33 19:33 WBC 8.1 (4.5-11.0) X10^3/uL RBC 4.92 (4.5-5.9) X10^6/uL Hgb 14.5 (13.5-17.5) g/dL Hct 42.3 (41-53) % MCV 85.9 (80-100) fL MCH 29.6 (26-34) PG MCHC 34.4 (30-36) % RDW 14.1 (11.6-14.8) % Plt Count 261 (150-400) X10^3/uL Neut % (Auto) 53.6 (50-75) % Lymph % (Auto) 33.1 (25-40) % Forrest % (Auto) 9.8 (3-14) % Eos % (Auto) 2.8 (2-4) % Baso % (Auto) 0.7 (0-2) % Neut # (Auto) 4300 (0696-8143) /uL Lymph # (Auto) 2700 (6770-8221) /uL Forrest # (Auto) 800 (0-900) /uL Eos # (Auto) 200 (0-450) /uL Baso # (Auto) 100 (0-100) /uL Sodium 138 (137-145) mmol/L Potassium 3.8 (3.4-5.1) mmol/L Chloride 106 (98-107) mmol/L Carbon Dioxide 25 (22-32) mmol/L BUN 11 (9-20) mg/dL Creatinine 1.22 (0.66-1.25) mg/dL Estimated GFR > 60 (>60) mL/min BUN/Creatinine Ratio 9.0 (6-22) Glucose 113 H (70-100) mg/dL Calcium 9.1 (8.4-10.2) mg/dL Total Bilirubin 0.6 (0.2-1.3) mg/dL AST 32 (17-59) IU/L ALT 40 (<50) IU/L Alkaline Phosphatase 71 (38-126) U/L Total Protein 7.4 (6.3-8.2) g/dL Albumin 4.3 (3.5-5.0) g/dL Globulin 3.1 (1.7-4.1) g/dL Albumin/Globulin Ratio 1.4 (1.0-2.8) TSH 0.949 (0.47-4.68) uIU/mL Free T4 1.06 (0.78-2.19) ng/dL Urine Color Yellow Urine Appearance Clear Urine pH 6.0 Normal (4.5-8.0) Ur Specific [place] >=1.030 H (1.000-1.035) Urine Protein Trace H (Negative) Urine Glucose (UA) Negative (Negative) g/dL Urine Ketones Negative (NEGATIVE) Urine Occult Blood Negative (Negative) Urine Nitrate Negative (Negative) Urine Bilirubin Negative (NEGATIVE) Urine Urobilinogen 0.2 (0.2) E.U./dL Ur Leukocyte Esterase Negative (NEGATIVE) Urine RBC None seen (0-5/HPF) Urine WBC 0-1/hpf (0-5/HPF) Ur Squamous Epith Cells None seen (0-5/HPF) Urine Bacteria None seen (None) Ur Culture Indicated? Cult not indicated Vol Urine Centrifuged 10ml (spun) Salicylates < 1.0 (<20) mg/dL U Opiates 300ng/mL cut Negative (Negative) Ur Oxycodone Screen Negative (Negative) Urine Methadone Screen Negative (Negative) Acetaminophen < 10 (10-30) ug/mL Ur Barbiturates Screen Negative (Negative) U Tricyclic Antidepress Negative (Negative) Ur Phencyclidine Scrn Negative (Negative) Ur Amphetamines Screen Negative (Negative) U Methamphetamines Scrn Negative (Negative) Ur MDMA Scrn (Ecstasy) Negative (Negative) U Benzodiazepines Scrn Negative (Negative) Urine Cocaine Screen Negative (Negative) U Marijuana (THC) Screen Negative (Negative) Urine Specific [place] Normal (Normal) Ethyl Alcohol < 10 ( - 10) mg/dL Ur Creatinine Normal (Normal) SARS-CoV-2 (PCR) (Negative) 10/09/23 Range/Units 02:12 WBC (4.5-11.0) X10^3/uL RBC (4.5-5.9) X10^6/uL Hgb (13.5-17.5) g/dL Hct (41-53) % MCV (80-100) fL MCH (26-34) PG MCHC (30-36) % RDW (11.6-14.8) % Plt Count (150-400) X10^3/uL Neut % (Auto) (50-75) % Lymph % (Auto) (25-40) % Forrest % (Auto) (3-14) % Eos % (Auto) (2-4) % Baso % (Auto) (0-2) % Neut # (Auto) (3668-6436) /uL Lymph # (Auto) (0593-9158) /uL Forrest # (Auto) (0-900) /uL Eos # (Auto) (0-450) /uL Baso # (Auto) (0-100) /uL Sodium (137-145) mmol/L Potassium (3.4-5.1) mmol/L Chloride (98-107) mmol/L Carbon Dioxide (22-32) mmol/L BUN (9-20) mg/dL Creatinine (0.66-1.25) mg/dL Estimated GFR (>60) mL/min BUN/Creatinine Ratio (6-22) Glucose (70-100) mg/dL Calcium (8.4-10.2) mg/dL Total Bilirubin (0.2-1.3) mg/dL AST (17-59) IU/L ALT (<50) IU/L Alkaline Phosphatase (38-126) U/L Total Protein (6.3-8.2) g/dL Albumin (3.5-5.0) g/dL Globulin (1.7-4.1) g/dL Albumin/Globulin Ratio (1.0-2.8) TSH (0.47-4.68) uIU/mL Free T4 (0.78-2.19) ng/dL Urine Color Urine Appearance Urine pH (4.5-8.0) Ur Specific [place] (1.000-1.035) Urine Protein (Negative) Urine Glucose (UA) (Negative) g/dL Urine Ketones (NEGATIVE) Urine Occult Blood (Negative) Urine Nitrate (Negative) Urine Bilirubin (NEGATIVE) Urine Urobilinogen (0.2) E.U./dL Ur Leukocyte Esterase (NEGATIVE) Urine RBC (0-5/HPF) Urine WBC (0-5/HPF) Ur Squamous Epith Cells (0-5/HPF) Urine Bacteria (None) Ur Culture Indicated? Vol Urine Centrifuged Salicylates (<20) mg/dL U Opiates 300ng/mL cut (Negative) Ur Oxycodone Screen (Negative) Urine Methadone Screen (Negative) Acetaminophen (10-30) ug/mL Ur Barbiturates Screen (Negative) U Tricyclic Antidepress (Negative) Ur Phencyclidine Scrn (Negative) Ur Amphetamines Screen (Negative) U Methamphetamines Scrn (Negative) Ur MDMA Scrn (Ecstasy) (Negative) U Benzodiazepines Scrn (Negative) Urine Cocaine Screen (Negative) U Marijuana (THC) Screen (Negative) Urine Specific [place] (Normal) Ethyl Alcohol ( - 10) mg/dL Ur Creatinine (Normal) SARS-CoV-2 (PCR) Negative (Negative) Imaging Data CT scan - abdomen/pelvis: Radiologist's Impression: [address] [address] [address] Scan Report Signed Patient: Nasir Roth MR#: [id number] : 1985 Acct:[id number] Age/Sex: 38 / M Date of Service: 10/08/23 Loc: ED Accession Number: [id number] Procedure: CT abdomen pelvis w con Ordering Provider: Kwasi June MD PROCEDURE: CT ABDOMEN PELVIS W CON INDICATIONS: LLQ pain, hx divercitulitis TECHNIQUE: After the administration of intravenous contrast, axial sections acquired from the lung bases to the pubic symphysis. Coronal and sagittal reformats were performed. For radiation dose reduction, the following was used: automated exposure control, adjustment of mA and/or kV according to patient size. COMPARISON: CT of abdomen and pelvis dated 03/14/2020. FINDINGS: Image quality: Diagnostic. Lower Chest: Bibasilar dependent atelectasis is seen. Heart size is enlarged, no pericardial effusion. ABDOMEN: Liver: No solid mass. Moderate hepatic steatosis is noted. Gallbladder: No radiopaque gallstones or wall thickening. Biliary ducts: No biliary dilation. Pancreas: No ductal dilation. Spleen: Size is within normal limits. Adrenal Glands: No adrenal nodules. Kidneys and Ureters: No hydronephrosis. No solid mass. No complex renal cystic lesion which requires follow up. Stomach and Bowel: There is no bowel obstruction. No gastric or small bowel wall thickening. Appendix is visualized and is within normal limits. No colonic wall thickening or mesenteric fat stranding. No abscess collection. Peritoneum: No abnormal intraperitoneal fluid. No free air. Ventral Wall: No significant ventral hernia. Abdominal Nodes: No retroperitoneal or mesenteric adenopathy by size criteria. Vessels: Aorta and inferior vena cava are normal in size. PELVIS: Pelvic Organs: Unremarkable. Bladder: No bladder wall thickening, accounting for underdistention. Pelvic Nodes: No enlarged lymph nodes. Miscellaneous: Small bilateral inguinal hernia are seen containing fat only. Bones: No aggressive osseous abnormality. Degenerative endplate changes are noted at thoracolumbar junction. No acute vertebral body compression fracture. IMPRESSION: 1. No bowel obstruction or abnormal bowel wall thickening. Normal appendix. No evidence of acute diverticulitis. No free fluid or free air. 2. Hepatomegaly. Moderate to severe hepatic steatosis, no discrete hepatic lesion. 3. No renal stones or hydronephrosis. 4. Degenerative disc disease at thoracolumbar junction. Dictated by: Jose Ramon Fuller M.D. on 10/09/2023 at 0:00 Approved by: Jose Ramon Fuller M.D. on 10/09/2023 at 0:04 [facility] Narrative Medical decision making narrative: 38-year-old male felt to have possible manic exacerbation of bipolar-II disorder by his primary mental health care provider Dr. Zuleta, increased agitation while being driven by his POV toward the [facility] for consultation, here for further evaluation. Also has left abdominal pain for the last few days, history of diverticulitis, mild tenderness to mid lower left abdomen on exam. CT abdomen and pelvis requested. If medically cleared by imaging then consider nursing home social worker consultation for mental health disposition plan 10/09/23 @0036, CT abdomen and pelvis showed no acute changes, see radiologist's report. Medically cleared for psychiatric disposition plan, nursing home social worker consult when available 0315, accepted for inpatient psychiatric care Dr. Moran, [facility] Critical Care Time Critical Care Time Critical Care Time: Yes Total Critical Care Time: 35 Attestation: The high probability of a clinically significant, sudden or life threatening deterioration of the [abdominal pelvic, psychiatric, psychosocial] system(s) required my full and direct attention, intervention and personal management. The aggregate critical care time was [] minutes. This time is in addition to time spent performing reported procedures but includes the following: [x] Data Review and interpretation [x] Patient assessment and monitoring of vital signs [x] Documentation [x] Medication orders and management Discharge Plan Departure Patient Disposition: Xfer Psychiatric Hosp Clinical Impression: Bipolar 2 disorder, Agitation, Abdominal pain Activity Restrictions/Additional Instructions: Medically cleared for transfer to inpatient psychiatric facility, [facility] Prescriptions: No Action fluoxetine 20 mg capsule 20 mg PO DAILY (DME) safety needles [BD Eclipse] 18 gauge x 1 1/2 needle See Rx Instructions .Route Qty: 10 6RF Rx Instructions: USE TO DRAW TESTOSTERONE EVERY 2 WEEKS. DO NOT USE TO INJECT. omega 0-mrk-wtf-fish oil [Fish Oil] 1,000 mg (120 mg-180 mg) capsule 1 cap PO DAILY vitamin B complex Capsule 1 cap PO DAILY cholecalciferol (vitamin D3) 50 mcg (2,000 unit) capsule 50 mcg PO DAILY methylphenidate HCl [Concerta] 36 mg tablet extended release 24hr 36 mg PO QAM Zyrtec 10 mg capsule 10 mg PO DAILY testosterone cypionate [Depo-Testosterone] 200 mg/mL oil 100 mg IM Q2W Qty: 4 3RF Rx Instructions: Inject 100mg IM every 2 weeks (DME) Monoject Safety Syringes 3 mL 22 gauge x 1 1/2 syringe See Rx Instructions .Route Qty: 10 6RF Rx Instructions: USE TO DRAW AND ADMINISTER TESTOSTERONE EVERY 2 WEEKS INTRAMUSCULARLY methylphenidate HCl 10 mg tablet 10 mg PO QAM PRN (Reason: Per psychiatry) quetiapine 150 mg tablet 75 mg PO BEDTIME Referrals: Lesli Bunn ARNP [Primary Care Provider] -
--- NOTE | 2023-10-08 23:12 | DI.CT.S_ITS ---
PROCEDURE: CT ABDOMEN PELVIS W CON INDICATIONS: LLQ pain, hx divercitulitis TECHNIQUE: After the administration of intravenous contrast, axial sections acquired from the lung bases to the pubic symphysis. Coronal and sagittal reformats were performed. For radiation dose reduction, the following was used: automated exposure control, adjustment of mA and/or kV according to patient size. COMPARISON: CT of abdomen and pelvis dated 03/14/2020. FINDINGS: Image quality: Diagnostic. Lower Chest: Bibasilar dependent atelectasis is seen. Heart size is enlarged, no pericardial effusion. ABDOMEN: Liver: No solid mass. Moderate hepatic steatosis is noted. Gallbladder: No radiopaque gallstones or wall thickening. Biliary ducts: No biliary dilation. Pancreas: No ductal dilation. Spleen: Size is within normal limits. Adrenal Glands: No adrenal nodules. Kidneys and Ureters: No hydronephrosis. No solid mass. No complex renal cystic lesion which requires follow up. Stomach and Bowel: There is no bowel obstruction. No gastric or small bowel wall thickening. Appendix is visualized and is within normal limits. No colonic wall thickening or mesenteric fat stranding. No abscess collection. Peritoneum: No abnormal intraperitoneal fluid. No free air. Ventral Wall: No significant ventral hernia. Abdominal Nodes: No retroperitoneal or mesenteric adenopathy by size criteria. Vessels: Aorta and inferior vena cava are normal in size. PELVIS: Pelvic Organs: Unremarkable. Bladder: No bladder wall thickening, accounting for underdistention. Pelvic Nodes: No enlarged lymph nodes. Miscellaneous: Small bilateral inguinal hernia are seen containing fat only. Bones: No aggressive osseous abnormality. Degenerative endplate changes are noted at thoracolumbar junction. No acute vertebral body compression fracture. IMPRESSION: 1. No bowel obstruction or abnormal bowel wall thickening. Normal appendix. No evidence of acute diverticulitis. No free fluid or free air. 2. Hepatomegaly. Moderate to severe hepatic steatosis, no discrete hepatic lesion. 3. No renal stones or hydronephrosis. 4. Degenerative disc disease at thoracolumbar junction. Dictated by: Jose Ramon Fuller M.D. on 10/09/2023 at 0:00 Approved by: Jose Ramon Fuller M.D. on 10/09/2023 at 0:04
[2023-10-08] MEDS: SODIUM CHLORIDE 0.9% 1,000 ML 1000 ML IV (23:58)
[2023-10-09 01:31] VITALS: BMI 36.5
--- NOTE | 2023-10-09 02:12 | PC.NURSE ---
[employer] note: Attempting to find placement for patient. Once patient was medically cleared faxed over packets to [facility]. At [address] [facility] called and asked for a covid test to be done on patient. Asked if patient is still voluntary, said he is. Once off the phone I told RN about the need for a covid test.
[2023-10-09 02:31] LABS: COVID19 -Nasal RAPID Negative (Negative)
[2023-10-09 03:21] VITALS: BP 144/74; PULSE 62; RESP 15; TEMP 36.6; O2SAT 98
[2023-10-09 03:30] VITALS: BP 144/74
[2023-10-09] MEDS: QUETIAPINE 25 MG TABLET 75 MG PO (03:38)
== END 2023-10-09 03:59 ==
PROVIDERS: Emergency Provider Emergency Medicine; PCP Nurse Practitioner
DX: F31.81 Bipolar II disorder (principal); R45.1 Restlessness and agitation; R10.9 Unspecified abdominal pain; Z11.52 Encounter for screening for COVID-19
CPT/HCPCS: 74177; 80053; 80305; 80320; 80329; 81001; 84439; 84443; 85025; 87635; 96360; 99284; 99285; G0480; Q9967

== ENCOUNTER → 2023-11-04 11:02 | Outpatient (CLI) | payer OTHER, SELFPAY ==
[2023-10-09 01:31] VITALS: BMI 36.5
[2023-11-04 12:11] LABS: Add Manual Diff / Slide Review NO; Basophils Absolute Auto 0 /uL (0-100); Basophils Percent Auto 0.4 % (0-2); Eosinophils Absolute Auto 200 /uL (0-450); Eosinophils Percent Auto 2.3 % (2-4); Hematocrit 42.8 % (41-53); Hemoglobin 14.6 g/dL (13.5-17.5); Lymphocytes Absolute Auto 2500 /uL (1100-4500); Lymphocytes Percent Auto 33.7 % (25-40); Mean Corpuscular HGB Conc 34.2 % (30-36); Mean Corpuscular Hemoglobin 29.3 PG (26-34); Mean Corpuscular Volume 85.8 fL (80-100); Monocytes Absolute Auto 800 /uL (0-900); Monocytes Percent Auto 10.4 % (3-14); Neutrophils Absolute Auto 4000 /uL (1500-7000); Neutrophils Percent Auto 53.2 % (50-75); Platelet Count 267 X10^3/uL (150-400); Red Blood Cell Count 4.99 X10^6/uL (4.5-5.9); Red Cell Distribution Width 14.1 % (11.6-14.8); White Blood Cell Count 7.4 X10^3/uL (4.5-11.0)
[2023-11-04 12:34] LABS: Alanine Aminotransferase 45 IU/L (<50); Albumin 4.5 g/dL (3.5-5.0); Albumin Globulin Ratio 1.6 (1.0-2.8); Alkaline Phosphatase 86 U/L (38-126); Aspartate Aminotransferase 35 IU/L (17-59); BUN Creatinine Ratio 10.9 (6-22); Bilirubin Total 0.7 mg/dL (0.2-1.3); Blood Urea Nitrogen 11 mg/dL (9-20); Calcium 8.9 mg/dL (8.4-10.2); Carbon Dioxide 20 mmol/L (22-32); Chloride 107 mmol/L (98-107); Estimated Glomerular Filt Rate > 60 mL/min (>60); Globulin 2.9 g/dL (1.7-4.1); Glucose 90 mg/dL (70-100); HEMOLYSIS < 15 (0-50); Potassium 3.9 mmol/L (3.4-5.1); Sodium 137 mmol/L (137-145); Total Protein 7.4 g/dL (6.3-8.2)
[2023-11-04 13:07] LABS: Testosterone 202 ng/dL (132-813)
== END ==
LOC: LAB 11:02
PROVIDERS: PCP Nurse Practitioner; Referring Provider Nurse Practitioner; Visit Provider Nurse Practitioner
DX: E29.1 Testicular hypofunction (principal)
CPT/HCPCS: 36415; 80053; 84403; 85025

== ENCOUNTER → 2024-02-27 09:31 | Outpatient (CLI) | payer OTHER, SELFPAY ==
--- NOTE | 2024-02-27 09:33 | DI.MRI.S_ITS ---
PROCEDURE: MR HEAD/BRAIN WO/W CON INDICATIONS: reeval signal abnormality anterior medial left temporal lobe TECHNIQUE: Noncontrast axial T1 spin echo, axial T2 fast spin echo, sagittal and axial FLAIR, coronal T2 fast spin echo, axial gradient echo, axial diffusion and ADC through the brain. After the administration of contrast, axial and coronal and sagittal 3D VIBE or T1 spin echo with fat saturation through the brain. COMPARISON: None. FINDINGS: Image quality: Excellent. CSF Spaces: Basal cisterns are patent. No extra-axial fluid collections. Ventricles are normal in size and shape. Brain: No midline shift. No intracranial bleeds or masses. No abnormal intracranial enhancement. The brainstem appears normal. Diffusion-weighted images demonstrate no acute infarct. No chronic ischemic insults. Normal intravascular flow voids are present. Skull and face: Calvarial marrow is normal in signal. Orbits appear normal. Sinuses: Sinuses and mastoids appear clear. IMPRESSION: 1. No acute intracranial process. No abnormality identified in the temporal lobe. Dictated by: Lavonne Salter M.D. on 02/29/2024 at 11:55 Approved by: Lavonne Salter M.D. on 02/29/2024 at 11:57
[2024-02-27 10:35] LABS: Add Manual Diff / Slide Review NO; Basophils Absolute Auto 0 /uL (0-100); Basophils Percent Auto 0.5 % (0-2); Eosinophils Absolute Auto 100 /uL (0-450); Eosinophils Percent Auto 1.5 % (2-4); Hematocrit 39.7 % (41-53); Hemoglobin 13.5 g/dL (13.5-17.5); Lymphocytes Absolute Auto 2200 /uL (1100-4500); Lymphocytes Percent Auto 23.1 % (25-40); Mean Corpuscular Hemoglobin 29.4 PG (26-34); Mean Corpuscular Volume 86.4 fL (80-100); Monocytes Absolute Auto 1000 /uL (0-900); Monocytes Percent Auto 10.8 % (3-14); Neutrophils Absolute Auto 6000 /uL (1500-7000); Neutrophils Percent Auto 64.1 % (50-75); Platelet Count 265 X10^3/uL (150-400); Red Blood Cell Count 4.59 X10^6/uL (4.5-5.9); White Blood Cell Count 9.3 X10^3/uL (4.5-11.0)
[2024-02-27 10:54] LABS: Alanine Aminotransferase 23 IU/L (<50); Albumin 3.9 g/dL (3.5-5.0); Albumin Globulin Ratio 1.4 (1.0-2.8); Alkaline Phosphatase 69 U/L (38-126); Aspartate Aminotransferase 23 IU/L (17-59); BUN Creatinine Ratio 12.1 (6-22); Bilirubin Total 0.5 mg/dL (0.2-1.3); Blood Urea Nitrogen 14 mg/dL (9-20); Calcium 9.3 mg/dL (8.4-10.2); Carbon Dioxide 27 mmol/L (22-32); Chloride 104 mmol/L (98-107); Cholesterol 168 mg/dL (140-199); Estimated Glomerular Filt Rate > 60 mL/min (>60); Globulin 2.8 g/dL (1.7-4.1); Glucose 93 mg/dL (70-100); HDL Cholesterol 25 mg/dL (40-60); HEMOLYSIS < 15 (0-50); Hemoglobin A1C% w Est Avg Glu 5.1 % (4.0-6.0); LDL Cholesterol Calculated 91 mg/dL (<100); Potassium 4.8 mmol/L (3.4-5.1); Sodium 137 mmol/L (137-145); Total Protein 6.7 g/dL (6.3-8.2); Triglycerides 258 mg/dL (35-150)
[2024-02-27 11:27] LABS: TSH w/ Reflex to FT4 1.38 uIU/mL (0.47-4.68)
[2024-02-27 11:29] LABS: Testosterone 151 ng/dL (132-813)
== END ==
LOC: MRI 09:32
PROVIDERS: PCP Registered Nurse Diabetes Educator; Referring Provider Registered Nurse Diabetes Educator; Visit Provider Registered Nurse Diabetes Educator
DX: G93.9 Disorder of brain, unspecified (principal); E29.1 Testicular hypofunction; R79.89 Other specified abnormal findings of blood chemistry; E78.1 Pure hyperglyceridemia
CPT/HCPCS: 36415; 70553; 80053; 80061; 83036; 84403; 84443; 85025; A9579

== ENCOUNTER → 2024-08-17 08:20 | Outpatient (CLI) | payer OTHER, SELFPAY ==
[2024-08-17 09:08] LABS: Hematocrit 45.9 % (41-53); Hemoglobin 15.6 g/dL (13.5-17.5); Mean Corpuscular Hemoglobin 29.7 PG (26-34); Mean Corpuscular Volume 87.1 fL (80-100); Platelet Count 256 X10^3/uL (150-400); Red Blood Cell Count 5.26 X10^6/uL (4.5-5.9); White Blood Cell Count 6.4 X10^3/uL (4.5-11.0)
[2024-08-17 09:53] LABS: Vitamin D 25 Hydroxy (D3) 38.1 ng/mL (30.0-100.0)
[2024-08-17 10:10] LABS: Testosterone 186 ng/dL (132-813)
== END ==
LOC: LAB 08:22
PROVIDERS: PCP Registered Nurse Diabetes Educator; Referring Provider Registered Nurse Diabetes Educator; Visit Provider Registered Nurse Diabetes Educator
DX: E29.1 Testicular hypofunction (principal); D64.9 Anemia, unspecified; R53.83 Other fatigue
CPT/HCPCS: 36415; 82306; 84403; 85027

== ENCOUNTER → 2024-11-05 10:32 | Outpatient (CLI) | payer OTHER, SELFPAY ==
[2024-11-05 11:24] LABS: Hematocrit 48.1 % (41-53); Hemoglobin 16.6 g/dL (13.5-17.5); Mean Corpuscular HGB Conc 34.4 % (30-36); Mean Corpuscular Hemoglobin 30.0 PG (26-34); Mean Corpuscular Volume 87.1 fL (80-100); Platelet Count 258 X10^3/uL (150-400)
[2024-11-05 11:35] LABS: Hemoglobin A1C% w Est Avg Glu 5.3 % (4.0-6.0)
[2024-11-05 11:39] LABS: Alanine Aminotransferase 65 IU/L (<50); Albumin 4.4 g/dL (3.5-5.0); Albumin Globulin Ratio 1.6 (1.0-2.8); Alkaline Phosphatase 68 U/L (38-126); Blood Urea Nitrogen 7 mg/dL (9-20); Calcium 9.4 mg/dL (8.4-10.2); Carbon Dioxide 24 mmol/L (22-32); Chloride 104 mmol/L (98-107); Cholesterol 170 mg/dL (140-199); Estimated Glomerular Filt Rate > 60 mL/min (>60); Globulin 2.8 g/dL (1.7-4.1); Glucose 89 mg/dL (70-99); HDL Cholesterol 26 mg/dL (40-60); HEMOLYSIS < 15 (0-50); Potassium 4.7 mmol/L (3.4-5.1); Sodium 137 mmol/L (137-145); Total Protein 7.2 g/dL (6.3-8.2); Triglycerides 321 mg/dL (35-150)
[2024-11-05 12:09] LABS: TSH w/ Reflex to FT4 1.10 uIU/mL (0.47-4.68)
== END ==
LOC: LAB 10:33
PROVIDERS: PCP Registered Nurse Diabetes Educator; Referring Provider Registered Nurse Diabetes Educator; Visit Provider Registered Nurse Diabetes Educator
DX: E78.1 Pure hyperglyceridemia (principal); R79.89 Other specified abnormal findings of blood chemistry; F32.9 Major depressive disorder, single episode, unspecified; E29.1 Testicular hypofunction; Z79.899 Other long term (current) drug therapy
CPT/HCPCS: 36415; 80053; 80061; 83036; 84403; 84443; 85027

== ENCOUNTER → 2025-01-18 09:12 | Outpatient (CLI) | payer OTHER, SELFPAY ==
[2025-01-18 10:30] LABS: Alanine Aminotransferase 40 IU/L (<50); Albumin 4.4 g/dL (3.5-5.0); Albumin Globulin Ratio 1.6 (1.0-2.8); Alkaline Phosphatase 66 U/L (38-126); Globulin 2.8 g/dL (1.7-4.1); HEMOLYSIS < 15 (0-50); Total Protein 7.2 g/dL (6.3-8.2)
== END ==
PROVIDERS: PCP Registered Nurse Diabetes Educator; Referring Provider Registered Nurse Diabetes Educator; Visit Provider Registered Nurse Diabetes Educator
DX: R79.89 Other specified abnormal findings of blood chemistry (principal)
CPT/HCPCS: 36415; 80076; 84403